=== PATIENT | male | born 1955 | race Caucasian/White ===

== ENCOUNTER 2020-06-18 13:31 | Inpatient (IN) ==
[2020-06-18] MEDS ORDERED: CEFEPIME 2,000 MG/20 ML VIAL IV STA (14:22)
[2020-06-18] MEDS ORDERED: ONDANSETRON INJ 2 MG/ML 2 ML VIAL IV STA (14:22)
[2020-06-18] MEDS ORDERED: SODIUM CHLORIDE 0.9% 500 ML IV SCH (14:30)
--- NOTE | 2020-06-18 14:35 | Emergency Department Note ---
Impression & Plan Weakness, Acute cholecystitis, Falling, Leukocytosis ED Provider Note NAME: DESTINEY FITZGERALD AGE: 64 SEX: M : 1955 ARRIVES VIA: Walk-In INFORMANT: [Patient][family] ED PROVIDER(S): [Dean Field MD] CHIEF COMPLAINT: Weakness HISTORY OF PRESENT ILLNESS: The patient is a 64-year-old male who over the last few weeks has had multiple falls. He has been weaker and off balance and sometimes stumbling. He has not had much to eat or drink. There has been no fever, he has had some sweats though. He has had no cough or congestion, shortness of breath or chest pain. He denies vomiting but admits to a few bouts of diarrhea. Patient denies any real abdominal pain. The patient had outpatient imaging done today. Brain CT showed multiple older infarcts, nothing thought acute. Chest CT and abdominal and pelvis CTs were performed and suggestive of acute cholecystitis. The patient was sent to the ED for further work-up. REVIEW OF SYSTEMS: See HPI for pertinent positives and negatives. A total of ten systems were reviewed and were otherwise negative. PMHx/PSHx: See Below SOCIAL HISTORY: See Below. PHYSICAL EXAM: GENERAL: Patient is in no acute distress. HEENT: No acute trauma, normocephalic atraumatic, mucous membranes moist, no nasal congestion, no scleral icterus. NECK: No stridor, no adenopathy, no meningismus, trachea is midline. LUNGS: Clear to auscultation bilaterally, no wheeze, no rhonchi, breath sounds equal. HEART: Without murmurs gallops or rubs, regular rate and rhythm. ABDOMEN: Soft, nontender, bowel sounds positive, no hernias, no peritonitis. EXTREMITIES: No cyanosis or edema, full range of motion of all the joints wi thout pain or difficulty, no signs for acute trauma. NEUROLOGIC: Oriented x 3, no acute motor or sensory deficits, no focal weakness. No extremity drift, no cerebellar dysfunction. No speech slur or facial droop. SKIN: No rash, mild jaundice, no diaphoresis. DIFFERENTIAL DIAGNOSIS: Infection, dehydration, metabolic abnormality, hypo/hyperglycemia, electrolyte disturbance, anemia, hypoxia, acute cholecystitis, cardiac sources, intracerebral event, toxicologic issues, stroke, TIA, as well as other pathologies. EMERGENCY DEPARTMENT COURSE/PROCEDURES: ECG: Indication was weakness. The ECG shows a normal sinus rhythm with a rate of 91. There is no ST elevation, no PVCs. The QTc is 432. Continuous Cardiac Monitoring: An order was placed for continuous cardiac monitoring. The monitor shows a rate of 85 with normal sinus rhythm. MEDICAL DECISION MAKING: There is a slight leukocytosis, this certainly could be consistent with infection. There is a normal hemoglobin and platelet count. INR is slightly elevated at 1.2. There is an elevation to the creatinine consistent with some d ehydration, the value was 1.56. Lactic acid level was not elevated making sepsis less likely. There were a few subtle liver enzyme elevations, the bilirubin though was normal. Ammonia level was very slightly elevated at 37. No evidence for pancreatitis. ECG shows a sinus rhythm, no acute ischemia. Cardiac enzyme testing x1 is not consistent with acute cardiac injury. Covid testing returned negative. Chest film did not show pneumonia or free air. Gallbladder ultrasound showed evidence for acute cholecystitis. The patient was not toxic or febrile. He had really no pain on abdominal exam. The patient was given IV cefepime as empiric antibiotic coverage. He was given IV saline and IV Zofran. I spoke to patient about his findings, I spoke with general surgery and internal medicine. Hospitalization is warranted. The patient will eventually need a cholecystectomy. With regard to the findings on brain CT imaging, they appear older, not acute. On my exam, there are no focal neurologic findings. Certainly, his weakness, his falling could be secondary to his gallbladder infection. Past Med/Surg History Medical History Depression Diabetes type 2, uncontrolled (05/08/20) initial hemoglobin noted at 9%-04/2020 Frozen shoulder syndrome Hyperlipidemia Hypertension Left ankle pain Psoriasis Vitamin D deficiency Surgical History No history of previous surgery patient notes when very young fractured skull but does not know the name of procedure he had Family History Mother Myocardial infarction Denies family history of Ovarian cancer Prostate cancer Breast cancer Colorectal cancer Social History Smoking Status: Former smoker Tobacco Type: Smokeless Tobacco (Dip or Chew) Second Hand Exposure: No; Hx Alcohol Use: Yes Alcohol type: beer Alcohol Intake Frequency Comment: sometimes on a weekend Hx Substance Use: No Visual Impairment: No Limitations Hearing Ability: Hard of Hearing Director Of Psychology Required: No Beliefs That Will Affect Care: None marital status: Current Living Situation: Alone current occupational status: retired How many Children do You have: 0 Feels Safe at Home: Yes Childhood Exposure to Second-Hand Smoke: No caffeine: Yes during the past year weight has: remained stable Dental Care, Regularly: No Physical Activity Frequency: Daily Seatbelt Use: always Sunscreen Use: No Allergies Allergies Allergy/AdvReac Type Severity Reaction Status Date / Time No Known Allergies Allergy Verified 06/18/20 17:36 Home Meds Home Medications Medication Instructions Recorded Confirmed betamethasone dipropionate 1 applic TOPICAL BID PRN 06/18/20 06/18/20 lisinopril 20 mg PO QAM 06/18/20 06/18/20 metformin 1,000 mg PO BIDM 06/18/20 06/18/20 Previous Rx's Medication Instructions Recorded amlodipine 5 mg tablet 5 mg PO HS #30 tab 06/18/20 Results & Data (ED) Vital Signs Vital Signs - 24 hr 06/18/20 13:40 06/18/20 14:20 06/18/20 14:22 Temperature 36.4 C L Temperature Source Oral Pulse Rate 102 H 91 H 102 H Pulse Rate from SpO2 Sensor 91 H Pulse Rhythm Regular Respiratory Rate 18 18 18 Blood Pressure 103/67 117/64 Blood Pressure Mean 79 81 Pulse Oximetry 97 95 97 Oxygen Delivery Method Room Air Room Air Sepsis Recent Fever Within 48 Hours No Sepsis New/Unexplained Change in Mental Status No Sepsis Action Taken by Nursing No Action Required 06/18/20 14:30 06/18/20 15:00 06/18/20 15:30 Temperature Temperature Source Pulse Rate 92 H 90 86 Pulse Rate from SpO2 Sensor 92 H 90 87 Pulse Rhythm Respiratory Rate 19 13 10 L Blood Pressure 158/94 H 119/77 131/80 Blood Pressure Mean 115 91 97 Pulse Oximetry 96 96 96 Oxygen Delivery Method Sepsis Recent Fever Within 48 Hours Sepsis New/Unexplained Change in Mental Status Sepsis Action Taken by Nursing 06/18/20 16:25 06/18/20 17:20 06/18/20 17:30 Temperature Temperature Source Pulse Rate 85 Pulse Rate from SpO2 Sensor 83 84 Pulse Rhythm Respiratory Rate 17 20 12 Blood Pressure 125/71 139/78 121/73 Blood Pressure Mean 89 98 89 Pulse Oximetry 96 96 96 Oxygen Delivery Method Sepsis Recent Fever Within 48 Hours Sepsis New/Unexplained Change in Mental Status Sepsis Action Taken by Nursing 06/18/20 18:00 06/18/20 19:01 Temperature Temperature Source Pulse Rate 82 84 Pulse Rate from SpO2 Sensor 82 83 Pulse Rhythm Respiratory Rate 22 17 Blood Pressure 127/72 117/58 L Blood Pressure Mean 90 77 Pulse Oximetry 96 96 Oxygen Delivery Method Sepsis Recent Fever Within 48 Hours Sepsis New/Unexplained Change in Mental Status Sepsis Action Taken by Detention Medications Current Medication List: was personally reviewed by me Laboratory Data Attestation: I reviewed the patient's lab results. Result diagrams: 06/18/20 14:20 06/18/20 14:20 Lab Results 06/18/20 06/18/20 06/18/20 Range/Units 14:20 14:20 14:20 WBC 13.33 H (4.8-10.8) K/uL RBC 4.93 (4.7-6.1) M/uL Hgb 14.5 (14.0-18.0) g/dL Hct 41.1 L (42-52) % MCV 83.4 (80-100) fL MCH 29.4 (25-34) pg MCHC 35.3 (32-36) g/dL RDW Std Deviation 41.9 (36.4-46.3) fL RDW Coeff of James 13.7 (11.5-14.5) % Plt Count 327 (130-400) K/uL MPV 10.4 (7.4-10.4) fL Immature Gran % (Auto) 0.3 % Neut % (Auto) 81.9 % Lymph % (Auto) 6.5 % [place] % (Auto) 10.9 % Eos % (Auto) 0.3 % Baso % (Auto) 0.1 % Neut # (Auto) 10.92 H (1.4-6.5) K/uL Lymph # (Auto) 0.87 L (1.2-3.4) K/uL [place] # (Auto) 1.45 H (0.11-0.59) K/uL Eos # (Auto) 0.04 (0-0.5) K/uL Baso # (Auto) 0.01 (0-0.2) K/uL Immature Gran # (Auto) 0.04 H (0.00-0.02) K/uL PT 12.9 H (9.0-12.0) Seconds INR 1.2 H (0.9-1.1) APTT 29.3 (21.0-31.0) Seconds PTT Ratio 1.1 Sodium 133 L (136-145) mmol/L Potassium 3.5 (3.5-5.1) mmol/L Chloride 97 L (98-107) mmol/L Carbon Dioxide 27 (21-32) mmol/L Anion Gap 9.0 (3-11) BUN 27 H (7-18) mg/dl Creatinine 1.56 H (0.6-1.4) mg/dl Est Cr Clr Drug Dosing Not Reportable Est GFR ( Amer) 53.2 Est GFR (Non-Af Amer) 45.9 BUN/Creatinine Ratio 17.0 (10-20) Glucose 215 H (70-99) mg/dl Lactate (0.4-2.0) mmol/L Calcium 9.9 (8.5-10.1) mg/dl Magnesium 2.2 (1.8-2.4) mg/dl Total Bilirubin 0.8 (0.2-1) mg/dl AST 84 H (15-37) U/L ALT 134 H (12-78) U/L Alkaline Phosphatase 114 (45-117) U/L Ammonia (11-32) umol/L Troponin I < 0.015 (0-0.045) ng/ml Total Protein 7.7 (6.4-8.2) gm/dl Albumin 2.7 L (3.4-5.0) gm/dl Globulin 5.0 H (2.5-4.0) gm/dl Albumin/Globulin Ratio 0.5 L (0.9-2) Lipase 232 (73-393) U/L COVID-19 Eval Order SARS-CoV-2, RNA, NAAT (NEGATIVE) 06/18/20 06/18/20 06/18/20 Range/Units 15:53 15:53 17:50 WBC (4.8-10.8) K/uL RBC (4.7-6.1) M/uL Hgb (14.0-18.0) g/dL Hct (42-52) % MCV (80-100) fL MCH (25-34) pg MCHC (32-36) g/dL RDW Std Deviation (36.4-46.3) fL RDW Coeff of James (11.5-14.5) % Plt Count (130-400) K/uL MPV (7.4-10.4) fL Immature Gran % (Auto) % Neut % (Auto) % Lymph % (Auto) % [place] % (Auto) % Eos % (Auto) % Baso % (Auto) % Neut # (Auto) (1.4-6.5) K/uL Lymph # (Auto) (1.2-3.4) K/uL [place] # (Auto) (0.11-0.59) K/uL Eos # (Auto) (0-0.5) K/uL Baso # (Auto) (0-0.2) K/uL Immature Gran # (Auto) (0.00-0.02) K/uL PT (9.0-12.0) Seconds INR (0.9-1.1) APTT (21.0-31.0) Seconds PTT Ratio Sodium (136-145) mmol/L Potassium (3.5-5.1) mmol/L Chloride (98-107) mmol/L Carbon Dioxide (21-32) mmol/L Anion Gap (3-11) BUN (7-18) mg/dl Creatinine (0.6-1.4) mg/dl Est Cr Clr Drug Dosing Est GFR ( Amer) Est GFR (Non-Af Amer) BUN/Creatinine Ratio (10-20) Glucose (70-99) mg/dl Lactate 1.3 (0.4-2.0) mmol/L Calcium (8.5-10.1) mg/dl Magnesium (1.8-2.4) mg/dl Total Bilirubin (0.2-1) mg/dl AST (15-37) U/L ALT (12-78) U/L Alkaline Phosphatase (45-117) U/L Ammonia 37.0 H (11-32) umol/L Troponin I (0-0.045) ng/ml Total Protein (6.4-8.2) gm/dl Albumin (3.4-5.0) gm/dl Globulin (2.5-4.0) gm/dl Albumin/Globulin Ratio (0.9-2) Lipase (73-393) U/L COVID-19 Eval [facility] SARS-CoV-2, RNA, NAAT (NEGATIVE) 06/18/20 Range/Units 17:50 WBC (4.8-10.8) K/uL RBC (4.7-6.1) M/uL Hgb (14.0-18.0) g/dL Hct (42-52) % MCV (80-100) fL MCH (25-34) pg MCHC (32-36) g/dL RDW Std Deviation (36.4-46.3) fL RDW Coeff of James (11.5-14.5) % Plt Count (130-400) K/uL MPV (7.4-10.4) fL Immature Gran % (Auto) % Neut % (Auto) % Lymph % (Auto) % [place] % (Auto) % Eos % (Auto) % Baso % (Auto) % Neut # (Auto) (1.4-6.5) K/uL Lymph # (Auto) (1.2-3.4) K/uL [place] # (Auto) (0.11-0.59) K/uL Eos # (Auto) (0-0.5) K/uL Baso # (Auto) (0-0.2) K/uL Immature Gran # (Auto) (0.00-0.02) K/uL PT (9.0-12.0) Seconds INR (0.9-1.1) APTT (21.0-31.0) Seconds PTT Ratio Sodium (136-145) mmol/L Potassium (3.5-5.1) mmol/L Chloride (98-107) mmol/L Carbon Dioxide (21-32) mmol/L Anion Gap (3-11) BUN (7-18) mg/dl Creatinine (0.6-1.4) mg/dl Est Cr Clr Drug Dosing Est GFR ( Amer) Est GFR (Non-Af Amer) BUN/Creatinine Ratio (10-20) Glucose (70-99) mg/dl Lactate (0.4-2.0) mmol/L Calcium (8.5-10.1) mg/dl Magnesium (1.8-2.4) mg/dl Total Bilirubin (0.2-1) mg/dl AST (15-37) U/L ALT (12-78) U/L Alkaline Phosphatase (45-117) U/L Ammonia (11-32) umol/L Troponin I (0-0.045) ng/ml Total Protein (6.4-8.2) gm/dl Albumin (3.4-5.0) gm/dl Globulin (2.5-4.0) gm/dl Albumin/Globulin Ratio (0.9-2) Lipase (73-393) U/L COVID-19 Eval Order SARS-CoV-2, RNA, NAAT NEGATIVE (NEGATIVE) Administered Medications Discontinued Medications Cefepime HCl (Maxipime) 2,000 mg in 20 mls @ 5 mls/min IV NOW STA; Protocol Stop: 06/18/20 14:25 Last Admin: 06/18/20 15:55 Dose: 5 mls/min Documented by: [id number] Sodium Chloride (Nss) 500 mls @ 999 mls/hr IV .Q31M BOBBY Stop: 06/18/20 15:00 Last Infusion: 06/18/20 16:25 Dose: 0 mls/hr Documented by: [id number] Admin: 06/18/20 15:54 Dose: 999 mls/hr Documented by: [id number] Ondansetron HCl (Ondansetron Inj 2 Mg/Ml 2 Ml Vial) 4 mg IV NOW STA Stop: 06/18/20 14:23 Last Admin: 06/18/20 15:55 Dose: 4 mg Documented by: [id number] Imaging Data Radiologist's Impression: XR chest 1V portable CLINICAL HISTORY: Abdominal pain. COMPARISON STUDY: Chest CT performed earlier today. FINDINGS: Lung volumes are normal. Lungs are clear. There is no pneumothorax or pleural effusion. Cardiac size is normal. Mediastinal contours are normal. There is no evidence for pulmonary edema. IMPRESSION: No acute cardiopulmonary findings. US gallbladder CLINICAL HISTORY: Abnormal CT scan. COMPARISON STUDY: CT of the abdomen and pelvis June 18, 2020. FINDINGS: A 1.8 cm right hepatic lobe lesion favors a cyst. Note is made of sludge within the gallbladder. No definite gallstones are noted. The gallbladder is distended. There is moderate gallbladder wall thickening. Trace pericholecystic fluid is noted. No sonographic Raymond sign was elicited. There is no biliary ductal dilatation. The common bile duct measures 5 mm in caliber. The pancreas is largely obscured. There is no right hydronephrosis. IMPRESSION: 1. Distended gallbladder with gallbladder wall thickening and sludge within the gallbladder. No gallstones identified. Overall, the CT and ultrasound findings suggest acute cholecystitis. 2. No biliary ductal dilatation. 3. Partially obscured pancreas. Discharge Plan Visit Data Chief Complaint: Weakness Stated Complaint: DIZZY,ABD PAIN,REF BY DOC ED Provider: Dean Field Discharge Problem: Weakness, Acute cholecystitis, Falling, Leukocytosis Patient Disposition: Admitted As Inpatient Condition: Fair Forms Stand Alone Forms: [facility] [employer] Prescriptions Prescriptions: No Action amlodipine 5 mg tablet 5 mg PO HS Qty: 30 RF: 3 lisinopril 20 mg tablet 20 mg PO QAM RF: 0 metformin 1,000 mg tablet 1,000 mg PO BIDM RF: 0 betamethasone dipropionate 0.05 % cream 1 applic topical BID PRN (Reason: Psoriasis) RF: 0 Referrals Referrals: Mathew Gonzalez CRNP [Primary Care Provider] - Discharge Problem: Leukocytosis Qualifiers: Leukocytosis type: unspecified Qualified Code(s): D72.829 - Elevated white blood cell count, unspecified
--- NOTE | 2020-06-18 14:44 | XRay Report ---
XR chest 1V portable CLINICAL HISTORY: Abdominal pain. COMPARISON STUDY: Chest CT performed earlier today. FINDINGS: Lung volumes are normal. Lungs are clear. There is no pneumothorax or pleural effusion. Car diac size is normal. Mediastinal contours are normal. There is no evidence for pulmonary edema. IMPRESSION: No acute cardiopulmonary findings. ACT 112: Negative or not required by law. Electronically signed by: Keith Blevins M.D. 06/18/2020 2:42 PM
[2020-06-18 14:45] LABS: Basophils # (auto) 0.01 K/uL (0-0.2); Basophils % (auto) 0.1 %; Eosinophils # (auto) 0.04 K/uL (0-0.5); Eosinophils % (auto) 0.3 %; Hematocrit (blood only) 41.1 % (42-52); Hemoglobin 14.5 g/dL (14.0-18.0); Immature Granulocytes # (auto) 0.04 K/uL (0.00-0.02); Immature Granulocytes % (auto) 0.3 %; Lymphocytes # (auto) 0.87 K/uL (1.2-3.4); Lymphocytes % (auto) 6.5 %; Mean Corpuscular Hemoglobin 29.4 pg (25-34); Mean Corpuscular Hgb Conc 35.3 g/dL (32-36); Mean Corpuscular Volume 83.4 fL (80-100); Mean Platelet Volume 10.4 fL (7.4-10.4); Monocytes # (auto) 1.45 K/uL (0.11-0.59); Monocytes % (auto) 10.9 %; Neutrophils # (auto) 10.92 K/uL (1.4-6.5); Neutrophils % (auto) 81.9 %; Platelet Count 327 K/uL (130-400); RDW Coefficient of Variation 13.7 % (11.5-14.5); RDW Standard Deviation 41.9 fL (36.4-46.3); Red Blood Count 4.93 M/uL (4.7-6.1); White Blood Count 13.33 K/uL (4.8-10.8)
[2020-06-18 14:56] LABS: INR 1.2 (0.9-1.1); Partial Thromboplastin Ratio 1.1; Partial Thromboplastin Time 29.3 Seconds (21.0-31.0); Prothrombin Time 12.9 Seconds (9.0-12.0)
[2020-06-18 15:09] LABS: Alanine Aminotransferase 134 U/L (12-78); Albumin Level 2.7 gm/dl (3.4-5.0); Aspartate Aminotransferase 84 U/L (15-37); Blood Urea Nitrogen 27 mg/dl (7-18); Calcium 9.9 mg/dl (8.5-10.1); Carbon Dioxide 27 mmol/L (21-32); Chloride 97 mmol/L (98-107); Est GFR (African American) 53.2; Est GFR (Non-African American) 45.9; Glucose 215 mg/dl (70-99); Lipase 232 U/L (73-393); Magnesium 2.2 mg/dl (1.8-2.4); Potassium 3.5 mmol/L (3.5-5.1); Sodium 133 mmol/L (136-145)
[2020-06-18 15:14] LABS: Albumin Globulin Ratio 0.5 (0.9-2); Alkaline Phosphatase 114 U/L (45-117); Bilirubin,Total 0.8 mg/dl (0.2-1); Total Protein 7.7 gm/dl (6.4-8.2); Troponin I < 0.015 ng/ml (0-0.045)
--- NOTE | 2020-06-18 16:47 | Electrocardiogram Report ---
Test Reason : Blood Pressure : / mmHG Vent. Rate : 091 BPM Atrial Rate : 091 BPM P-R Int : 158 ms QRS Dur : 088 ms QT Int : 352 ms P-R-T Axes : 061 039 068 degrees QTc Int : 432 ms Normal sinus rhythm Possible Left atrial enlargement Borderline ECG No previous ECGs available Confirmed by Mack Vernon ([id number]) on 06/18/2020 4:47:02 PM Referred By: ER Confirmed By:Carlos Vernon
--- NOTE | 2020-06-18 17:24 | Ultrasound Report ---
US gallbladder CLINICAL HISTORY: Abnormal CT scan. COMPARISON STUDY: CT of the abdomen and pelvis June 18, 2020. FINDINGS: A 1.8 cm right hepatic lobe lesion favors a cyst. Note is made of sludge within the gallbla dder. No definite gallstones are noted. The gallbladder is distended. There is moderate gallbladder w all thickening. Trace pericholecystic fluid is noted. No sonographic Raymond sign was elicited. There is no biliary ductal dilatation. The common bile duct measures 5 mm in caliber. The pancreas is large ly obscured. There is no right hydronephrosis. IMPRESSION: 1. Distended gallbladder with gallbladder wall thickening and sludge within the gallbladder. No galls tones identified. Overall, the CT and ultrasound findings suggest acute cholecystitis. 2. No biliary ductal dilatation. 3. Partially obscured pancreas. ACT 112: Negative or not required by law. Electronically signed by: Keith Blevins M.D. 06/18/2020 5:23 PM
--- NOTE | 2020-06-18 20:27 | Surgery Consultation ---
Date of Consultation June 18, 2020 Assessment & Plan (1) Acute cholecystitis: pt is a 64 year-old male who presents with ER with weakness, U/S study diagnosis: acute cholecystitis, IMP: acute cholecystitis, DM, weakness, I recommend to admit pt to hospital, to do laparoscopic cholecystectomy possible open or cholangiogram tomorrow, D/W benefits, risks and alternatives of the surgery, the risks - infection, bleeding, injury CBD, bowel, IN, DVT, stroke, , pt and his brother understood, they agree with the plan, I answered all questions, consult hospitalist for co-manage this pt. Present on Admission?: Yes (2) Weakness: History of Present Illness History of Present Illness CHIEF COMPLAINT: Weakness HISTORY OF PRESENT ILLNESS: The patient is a 64-year-old male who over the last few weeks has had multiple falls. He has been weaker and off balance and sometimes stumbling. He has not had much to eat or drink. There has been no fever, he has had some sweats though. He has had no cough or congestion, shortness of breath or chest pain. He denies vomiting but admits to a few bouts of diarrhea. Patient denies any real abdominal pain. The patient had outpatient imaging done today. Brain CT showed multiple older infarcts, nothing thought acute. Chest CT and abdominal and pelvis CTs were performed and suggestive of acute cholecystitis. The patient was sent to the ED for further work-up. I ( Patt lBand mD) got a call for consult acute cholecystitis, I reviewed pt's H/P, labs, U/S study with pt and his brother, pt has mild RUQ pain, with na usea, no vomiting, no fever, REVIEW OF SYSTEMS: See HPI for pertinent positives and negatives. A total of ten systems were reviewed and were otherwise negative. PMHx/PSHx: See Below SOCIAL HISTORY: See Below. Allergies Allergy/AdvReac Type Severity Reaction Status Date / Time No Known Allergies Allergy Verified 06/18/20 17:36 Home Medications Medication Instructions Recorded Confirmed Type amlodipine 5 mg tablet 5 mg PO HS #30 tab 06/18/20 06/18/20 Rx betamethasone dipropionate 1 applic TOPICAL BID PRN 06/18/20 06/18/20 History lisinopril 20 mg PO QAM 06/18/20 06/18/20 History metformin 1,000 mg PO BIDM 06/18/20 06/18/20 History Patient History Medical History Depression Diabetes type 2, uncontrolled (05/08/20) initial hemoglobin noted at 9%-04/2020 Frozen shoulder syndrome Hyperlipidemia Hypertension Left ankle pain Psoriasis Vitamin D deficiency Surgical History No history of previous surgery patient notes when very young fractured skull but does not know the name of procedure he had Family History Mother Myocardial infarction Denies family history of Ovarian cancer Prostate cancer Breast cancer Colorectal cancer Social History Smoking Status: Former smoker Tobacco Type: Smokeless Tobacco (Dip or Chew) Second Hand Exposure: No; Hx Alcohol Use: Yes Alcohol type: beer Alcohol Intake Frequency Comment: sometimes on a weekend Hx Substance Use: No Visual Impairment: No Limitations Hearing Ability: Hard of Hearing Beater Operator Required: No Beliefs That Will Affect Care: None marital status: Current Living Situation: Alone current occupational status: retired How many Children do You have: 0 Feels Safe at Home: Yes Childhood Exposure to Second-Hand Smoke: No caffeine: Yes during the past year weight has: remained stable Dental Care, Regularly: No Physical Activity Frequency: Daily Seatbelt Use: always Sunscreen Use: No Review of Systems Review of Systems: All systems reviewed & are unremarkable except as noted in HPI & below Constitutional: as per Subjective / HPI Eyes: as per Subjective / HPI Ear, Nose, Mouth, Throat: as per Subjective / HPI Respiratory: as per Subjective / HPI Cardiovascular: as per Subjective / HPI Additional Comments: HTN, hyperlipidemia Gastrointestinal: as per Subjective / HPI Genitourinary: + as per Subjective / HPI Musculoskeletal: as per Subjective / HPI vit D deficiency Integumentary: as per Subjective / HPI Neurologic: as per Subjective / HPI Psychiatric: as per Subjective / HPI depression Endocrine: as per Subjective / HPI DM Hematologic / Lymphatic: as per Subjective / HPI Allergy / Immunological: as per Subjective / HPI Physical Exam Constitutional: WD/WN, vitals as above well developed and well nourished Eyes: PERRL, conjunctivae normal, anicteric sclerae ENMT: external ear and nose normal, oropharynx normal Neck: trachea midline, no thyromegaly Respiratory: normal respiratory effort, lungs clear to auscultation normal respiratory effort Cardiovascular: RRR, no murmur, no edema Rate/Rhythm: regular rate and regular rhythm Gastrointestinal (Abdomen): Percussion/Palpation: + abdomen tender and abdomen soft tenderness at RUQ, no rebound pain, BS +, no distend Musculoskeletal: no cyanosis or clubbing, extremities motor strength 5/5 Skin: no rashes, warm and dry Neurologic: awake Psychiatric: Orientation: alert and oriented x 3 Results & Data ([facility]) Vital Signs (Past 12 Hours) Vital Signs Temp Pulse Resp BP Pulse Ox 06/18/20 20:00 86 19 155/108 H 06/18/20 19:30 81 13 121/74 97 06/18/20 19:01 84 17 117/58 L 96 06/18/20 18:00 82 22 127/72 96 06/18/20 17:30 12 121/73 96 06/18/20 17:20 20 139/78 96 06/18/20 16:25 85 17 125/71 96 06/18/20 15:30 86 10 L 131/80 96 06/18/20 15:00 90 13 119/77 96 06/18/20 14:30 92 H 19 158/94 H 96 06/18/20 14:22 102 H 18 97 06/18/20 14:20 91 H 18 117/64 95 06/18/20 13:40 36.4 C L 102 H 18 103/67 97 Laboratory Results Abnormal lab results 06/18/20 06/18/20 06/18/20 Range/Units 14:20 14:20 14:20 WBC 13.33 H (4.8-10.8) K/uL Hct 41.1 L (42-52) % Neut # (Auto) 10.92 H (1.4-6.5) K/uL Lymph # (Auto) 0.87 L (1.2-3.4) K/uL [place] # (Auto) 1.45 H (0.11-0.59) K/uL Immature Gran # (Auto) 0.04 H (0.00-0.02) K/uL PT 12.9 H (9.0-12.0) Seconds INR 1.2 H (0.9-1.1) Sodium 133 L (136-145) mmol/L Chloride 97 L (98-107) mmol/L BUN 27 H (7-18) mg/dl Creatinine 1.56 H (0.6-1.4) mg/dl Glucose 215 H (70-99) mg/dl AST 84 H (15-37) U/L ALT 134 H (12-78) U/L Ammonia (11-32) umol/L Albumin 2.7 L (3.4-5.0) gm/dl Globulin 5.0 H (2.5-4.0) gm/dl Albumin/Globulin Ratio 0.5 L (0.9-2) 06/18/20 Range/Units 15:53 WBC (4.8-10.8) K/uL Hct (42-52) % Neut # (Auto) (1.4-6.5) K/uL Lymph # (Auto) (1.2-3.4) K/uL [place] # (Auto) (0.11-0.59) K/uL Immature Gran # (Auto) (0.00-0.02) K/uL PT (9.0-12.0) Seconds INR (0.9-1.1) Sodium (136-145) mmol/L Chloride (98-107) mmol/L BUN (7-18) mg/dl Creatinine (0.6-1.4) mg/dl Glucose (70-99) mg/dl AST (15-37) U/L ALT (12-78) U/L Ammonia 37.0 H (11-32) umol/L Albumin (3.4-5.0) gm/dl Globulin (2.5-4.0) gm/dl Albumin/Globulin Ratio (0.9-2) Diagnostic Findings US gallbladder CLINICAL HISTORY: Abnormal CT scan. COMPARISON STUDY: CT of the abdomen and pelvis June 18, 2020. FINDINGS: A 1.8 cm right hepatic lobe lesion favors a cyst. Note is made of sludge within the gallbladder. No definite gallstones are noted. The gallbladder is distended. There is moderate gallbladder wall thickening. Trace pericholecystic fluid is noted. No sonographic Raymond sign was elicited. There is no biliary ductal dilatation. The common bile duct measures 5 mm in caliber. The pancreas is largely obscured. There is no right hydronephrosis. IMPRESSION: 1. Distended gallbladder with gallbladder wall thickening and sludge within the gallbladder. No gallstones identified. Overall, the CT and ultrasound findings suggest acute cholecystitis. 2. No biliary ductal dilatation. 3. Partially obscured pancreas.
[2020-06-18] MEDS ORDERED: PIPERACILL/TAZOBAC CONSULT ACTIVE PRN (22:03)
[2020-06-18] MEDS ORDERED: oxyCODONE/ACETAMINOPHEN 5mg/325mg TAB PO PRN (22:03)
[2020-06-18] MEDS ORDERED: HYDROmorphone INJ 1 MG/ML SYRINGE IV PRN (22:03)
[2020-06-18] MEDS ORDERED: PANTOprazole 40 MG in SYRINGE 0 ML IV ONE (22:30)
[2020-06-18] MEDS: LACTATED RINGER'S 1,000 ML IV SCH (22:37)
[2020-06-18 22:50] LABS: Albumin Level 2.6 gm/dl (3.4-5.0); BUN Creatinine Ratio 20.2 (10-20); Calcium 10.3 mg/dl (8.5-10.1); Creatinine Clr Calc Pharmacy 56.2 ml/min; Est GFR (African American) 65.8; Est GFR (Non-African American) 56.7; Potassium 3.5 mmol/L (3.5-5.1)
[2020-06-18 22:53] LABS: Albumin Globulin Ratio 0.5 (0.9-2); Bilirubin,Total 0.6 mg/dl (0.2-1); Globulin 5.1 gm/dl (2.5-4.0); Total Protein 7.7 gm/dl (6.4-8.2)
[2020-06-18] MEDS ORDERED: PIPERACILLIN/TAZOBACTAM 3.375 GM in DEXTROSE 5% 100 ML IV ONE (23:00)
[2020-06-19] MEDS: amLODIPine BESYLATE 5 MG TAB PO SCH ×2 (00:02→20:07)
[2020-06-19] MEDS: INSULIN ASPART 100 UNITS/ML 3 ML PEN SC SCH ×5 (00:06→20:50)
[2020-06-19 00:29] LABS: Appearance Urine Cloudy (Clear); Bacteria Urine Automated Negative (Negative); Bilirubin Urine Negative (Negative); Blood Urine 1+ (Negative); Color Urine Yellow; Epithelial Cell Urine Auto >30 /lpf (0-5); Glucose Urine UA Negative (Negative); Ketones Urine Trace (Negative); Leukocyte Esterase Urine 2+ (Negative); Nitrite Urine Negative (Negative); Protein Urine Trace (Negative); RBC Urine Automated 0-4 /hpf (0-4); Specific Gravity Urine 1.045 (1.000-1.030); Urobilinogen Urine Negative (Negative)
[2020-06-19] MEDS ORDERED: hydrALAZINE HCL 20 MG/ML VIAL IV PRN (01:01)
[2020-06-19 01:10] LABS: Mucus Urine Present (None Prsent)
[2020-06-19] MEDS ORDERED: DEXTROSE 50% 50 ML SYRINGE IV PRN (02:00)
[2020-06-19] MEDS ORDERED: GLUCOSE 40% GEL 15 GM TUBE PO PRN (02:00)
[2020-06-19] MEDS ORDERED: GLUCOSE 10 TABS/TUBE PO PRN (02:00)
[2020-06-19] MEDS ORDERED: GLUCAGON FOR INJ 1 MG VIAL IM PRN (02:00)
[2020-06-19] MEDS ORDERED: CARBOHYDRATES FOR HYPOGLYCEMIA PO PRN (02:00)
--- NOTE | 2020-06-19 02:57 | History and Physical Report ---
DATE OF ADMISSION: 06/18/2020 CHIEF COMPLAINT: Acute cholecystitis. HISTORY OF PRESENT ILLNESS: This is a 64-year-old male with past medical history significant for diabetes, hypertension, psoriasis who was in the hospital for workup for his frequent falls at home and he had CT of the head, CT of the chest, CT abdomen and pelvis and workup showed acute cholecystitis and Surgery was consulted by the ER. A gallbladder ultrasound also was consistent with cholecystitis. Surgery admitted the patient, started on antibiotics and plan for laparoscopic cholecystectomy tomorrow. We are consulted for medical management. Currently, patient is resting comfortably. Denies any abdominal pain, no nausea, no fever, no chills, no chest pain, no shortness of breath, no cough, no headache, no blurred vision, no earache, no runny nose, no sore throat. He says normal bowel and bladder movements. ALLERGIES: No known drug allergies. PAST MEDICAL HISTORY: As mentioned above. PAST SURGICAL HISTORY: The patient denies any past surgical history. MEDICATIONS: The patient is on amlodipine 5 mg p.o. daily, betamethasone one topical application b.i.d. p.r.n., lisinopril 20 mg p.o. a.m., metformin 1000 mg p.o. b.i.d. FAMILY HISTORY: He says mother had diabetes. SOCIAL HISTORY: Lives alone, brother lives close by. Denies any smoking. Used to drink alcohol during the past but did not drink for a long time. Denies any drug use. REVIEW OF SYMPTOMS: As per HPI. Rest of review of systems negative. PHYSICAL EXAMINATION: GENERAL: The patient is of moderate build, not in acute distress. VITAL SIGNS: Temperature 37.2, pulse 79, respiratory rate 16, blood pressure 144/67, oxygen 97% room air. HEENT: Head atraumatic. No facial droop seen. NECK: No neck masses seen. CARDIOVASCULAR: S1, S2 heard, regular rate and rhythm, no murmur, no gallop. RESPIRATORY SYSTEM: Normal AP diameter. No accessory muscle use. No wheezing, no crackles. ABDOMEN: Soft, bowel sounds present, nontender. No distention, no guarding, no rigidity. CENTRAL NERVOUS SYSTEM: Cranial nerves II through XII grossly intact, nonfocal. EXTREMITIES: No edema, no erythema. LABORATORY DATA: WBC 13, hemoglobin 14.5, hematocrit 41.1, platelets 327. PT 12.9, INR 1.2. , PTT 29.3. Sodium 136, potassium 3.5, chloride 99, bicarbonate 29, BUN 26, creatinine 1.3, serum glucose 124. Lactate 1.3, calcium 10.3, magnesium 2.2, total bilirubin 0.6, AST 83, ALT 144, alkaline phosphatase 166. Ammonia 37. Troponin I less than 0.015. Lipase 232. Urinalysis, +2 leukocyte esterase. SARS-CoV-2 RNA negative. Chest x-ray: No acute cardiopulmonary findings. EKG: Normal sinus rhythm, rate of 91. Possible left atrial enlargement, no acute ST changes seen. IMAGING: Gallbladder ultrasound, distended gallbladder with gallbladder wall thickening and sludge within the gallbladder, no gallstones identified. Overall CT and ultrasound findings suggestive of acute cholecystitis, no biliary ductal dilatation. Imaging studies earlier in the day: CT findings compatible with acute cholecystitis, moderate pericholecystic infiltration, edema. CT head, no acute findings, chronic changes and remote infarcts. Chest CT, no evidence of acute parenchymal consolidation, no evidence of pathologic adenopathy. ASSESSMENT AND PLAN: This is a 64-year-old male with history of diabetes, hypertension, psoriasis, who lives alone, was sent to hospital for workup for frequent falls and imaging studies showed acute cholecystitis. 1. Acute cholecystitis could be the cause of his falls, also has mild elevation of white count and mild transaminitis, possible from ongoing infection. He is on IV Zosyn. Surgery planned for cholecystectomy in a.m. Further management per Surgery. 2. Hypertension. Continue his home amlodipine. We will hold his lisinopril until surgery. Continue IV hydralazine p.r.n. 3. Diabetes. Hold his metformin, place on insulin sliding scale. Follow his blood sugars, follow HbA1c levels. 4. History of psoriasis. Continue his topical steroid cream as needed. 5. Deep venous thrombosis prophylaxis and disposition as per Surgery. [facility]
[2020-06-19] MEDS: PIPERACILLIN/TAZOBACTAM 3.375 GM in DEXTROSE 5% 100 ML IV SCH ×3 (05:09→20:02)
[2020-06-19 06:35] LABS: Basophils # (auto) 0.02 K/uL (0-0.2); Basophils % (auto) 0.2 %; Eosinophils # (auto) 0.19 K/uL (0-0.5); Eosinophils % (auto) 1.4 %; Hematocrit (blood only) 40.6 % (42-52); Hemoglobin 13.8 g/dL (14.0-18.0); Immature Granulocytes # (auto) 0.03 K/uL (0.00-0.02); Immature Granulocytes % (auto) 0.2 %; Lymphocytes # (auto) 1.34 K/uL (1.2-3.4); Lymphocytes % (auto) 10.1 %; Mean Corpuscular Hemoglobin 28.9 pg (25-34); Mean Corpuscular Volume 84.9 fL (80-100); Mean Platelet Volume 9.9 fL (7.4-10.4); Monocytes # (auto) 1.53 K/uL (0.11-0.59); Monocytes % (auto) 11.5 %; Neutrophils # (auto) 10.17 K/uL (1.4-6.5); Neutrophils % (auto) 76.6 %; Platelet Count 328 K/uL (130-400); RDW Coefficient of Variation 13.8 % (11.5-14.5); RDW Standard Deviation 42.9 fL (36.4-46.3); Red Blood Count 4.78 M/uL (4.7-6.1); White Blood Count 13.28 K/uL (4.8-10.8)
[2020-06-19 07:03] LABS: Albumin Level 2.4 gm/dl (3.4-5.0); BUN Creatinine Ratio 19.5 (10-20); Calcium 9.8 mg/dl (8.5-10.1); Creatinine Clr Calc Pharmacy 64.6 ml/min; Est GFR (African American) 77.8; Est GFR (Non-African American) 67.1; Potassium 3.4 mmol/L (3.5-5.1)
[2020-06-19 07:07] LABS: Albumin Globulin Ratio 0.5 (0.9-2); Bilirubin,Total 0.6 mg/dl (0.2-1); Globulin 4.8 gm/dl (2.5-4.0); Total Protein 7.2 gm/dl (6.4-8.2)
[2020-06-19] MEDS ORDERED: INSULIN ASPART 100 UNITS/ML 3 ML PEN SC SCH (07:30)
--- NOTE | 2020-06-19 07:31 | History & Physical Bridge Note ---
Date of Service June 19, 2020 History & Physical Bridge Note I have examined the patient, reviewed the History & Physical and in the interval since the performance of the History & Physical I have noted the following changes of clinical significance: no changes noted
[2020-06-19] MEDS ORDERED: BUPIVACAINE 0.5 % 5 MG/1 ML MPF 30ML VIAL ONE (07:37)
[2020-06-19] MEDS ORDERED: LIDOCAINE HCL 1% 20 ML VIAL ONE (07:37)
[2020-06-19] MEDS ORDERED: BACITRACIN OINT 15 GM TUBE ONE (07:38)
[2020-06-19] MEDS ORDERED: DEXAMETHASONE SOD INJ 4 MG/ML VIAL ONE (07:38)
[2020-06-19] MEDS ORDERED: NEOSTIGMINE METHYLSULFATE 5 MG/5 ML SYR ONE (07:38)
[2020-06-19] MEDS ORDERED: PROPOFOL IV EMULSION 10 MG/ML 20 ML VIAL IV ONE ×2 (07:38→08:54)
[2020-06-19] MEDS ORDERED: GLYCOPYRROLATE 0.2 MG/ML VIAL ONE (07:38)
[2020-06-19] MEDS ORDERED: fentaNYL citrate 100 MCG/2 ML VIAL ONE ×3 (07:38→08:51)
[2020-06-19] MEDS ORDERED: LIDOCAINE HCL 2% 2 ML VIAL/AMP(20MG/ML) INFIL ONE (07:38)
[2020-06-19] MEDS ORDERED: MIDAZOLAM HCL 1 MG/ML 2ML VIAL ONE (07:38)
[2020-06-19] MEDS ORDERED: ONDANSETRON INJ 2 MG/ML 2 ML VIAL ONE (07:38)
[2020-06-19] MEDS ORDERED: ceFAZolin 2000MG 2,000 MG/15 ML SYR IV ONE (07:42)
[2020-06-19] MEDS ORDERED: fentaNYL citrate 100 MCG/2 ML VIAL IV PRN (07:49)
[2020-06-19] MEDS ORDERED: ePHEDrine sulfate 50 MG/ML AMP IV PRN (07:49)
[2020-06-19] MEDS ORDERED: ATROPINE SULFATE 0.1 MG/ML 10ML SYR IV PRN (07:49)
[2020-06-19] MEDS ORDERED: ONDANSETRON INJ 2 MG/ML 2 ML VIAL IV PRN (07:49)
[2020-06-19] MEDS ORDERED: HYDROmorphone INJ 1 MG/ML SYRINGE IV PRN (07:50)
--- NOTE | 2020-06-19 07:58 | Anesthesiology Consultation ---
Date of Service June 19, 2020 Assessment & Plan (1) Encounter for pre-operative examination: Chart Review Chart Review: Acceptable Risk for Surgery and Patient NOT seen in Pre Admission Testing Consults Requested none History Surgery Operation Date: 06/19/20 07:50 Proposed Procedures p Laparoscopic Cholecystectomy - Patt Bland MD Height/Weight Height: 5 ft 9 in Weight: 82 kg Allergies Allergy/AdvReac Type Severity Reaction Status Date / Time No Known Allergies Allergy Verified 06/18/20 17:36 Medications Home Medications Medication Instructions Recorded Confirmed Last Taken amlodipine 5 mg tablet 5 mg PO HS #30 tab 06/18/20 06/18/20 06/17/20 betamethasone dipropionate 1 applic TOPICAL BID PRN 06/18/20 06/18/20 Unknown lisinopril 20 mg PO QAM 06/18/20 06/18/20 06/18/20 metformin 1,000 mg PO BIDM 06/18/20 06/18/20 06/17/20 Active Medications Generic Name Dose Route Start Last Admin Trade Name Freq PRN Reason Stop Dose Admin Amlodipine Besylate 5 mg 06/18/20 22:03 06/19/20 00:02 Amlodipine Besylate 5 Mg Tab PO 07/18/20 22:02 5 mg HS BOBBY Administration Lactated Ringer's 1,000 mls @ 80 mls/hr 06/18/20 22:03 06/18/20 22:37 Lr IV 07/18/20 22:02 80 mls/hr .[id number] BOBBY Administration Piperacillin Sod/Tazobactam 115 mls @ 28.75 mls/hr 06/19/20 04:00 06/19/20 05:09 Sod 3.375 gm/ Dextrose IV 06/29/20 03:59 28.8 mls/hr Q8H BOBBY Administration Protocol Insulin Aspart 0 units 06/19/20 00:00 06/19/20 06:19 Insulin Aspart 100 Units/Ml 3 Ml Pen SC 06/20/20 12:01 Not Given Q6 BOBBY Miscellaneous 1 ea 06/19/20 00:00 06/19/20 00:06 Betamethasone Dipropionate 0.05 % Cream ~ Order Awaiting Action N/A 07/19/20 00:00 Not Given QS BOBBY NPO Date Last Intake of Fluids: 06/18/20 Time Last Intake of Fluids: 23:59 Date Last Intake of Solids: 06/18/20 Time Last Intake of Solids: 23:59 Past Medical History Medical History Depression Diabetes type 2, uncontrolled (05/08/20) initial hemoglobin noted at 9%-04/2020 Frozen shoulder syndrome Hyperlipidemia Hypertension Left ankle pain Psoriasis Vitamin D deficiency 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 Exercise / Class Metabolic Activity II 4-5 Yardwork/Stairs/Walk up hill Past Family History Family History Mother Myocardial infarction Denies family history of Ovarian cancer Prostate cancer Breast cancer Colorectal cancer Past Surgical History Surgical History No history of previous surgery patient notes when very young fractured skull but does not know the name of procedure he had Past Anesthesia History No Hx of Anesthesia Complications and No Family Hx of Anesthesia Complications History of PONV No Hx of PONV and No Hx of Motion Sickness Social History Smoking Status: Former smoker tobacco type: cigarettes Do You Dip or Chew Tobacco: Yes Hx Alcohol Use: No Alcohol type: beer Hx Substance Use: No Physical Exam Vital Signs Last Vital Signs Temp 36.9 C 06/19/20 07:58 Pulse 83 06/19/20 07:58 Resp 18 06/19/20 07:58 BP 158/82 H 06/19/20 07:58 Pulse Ox 95 06/19/20 07:58 Testing Laboratory Results 06/19/20 06:01 06/19/20 06:01 PT 12.9 Seconds (9.0-12.0) H 06/18/20 14:20 INR 1.2 (0.9-1.1) H 06/18/20 14:20 APTT 29.3 Seconds (21.0-31.0) 06/18/20 14:20 Urine Color Yellow 06/18/20 23:25 Urine Appearance Cloudy (Clear) A 06/18/20 23:25 Urine pH 5.0 (4.5-7.5) 06/18/20 23:25 Ur Specific [place] 1.045 (1.000-1.030) H 06/18/20 23:25 Urine Protein Trace (Negative) H 06/18/20 23:25 Urine Glucose (UA) Negative (Negative) 06/18/20 23:25 Urine Ketones Trace (Negative) H 06/18/20 23:25 Urine Nitrite Negative (Negative) 06/18/20 23:25 Ur Leukocyte Esterase 2+ (Negative) H 06/18/20 23:25 Urine WBC (Auto) 10-30 /hpf (0-5) H 06/18/20 23:25 Urine RBC (Auto) 0-4 /hpf (0-4) 06/18/20 23:25 U Hyaline Cast (Auto) 1-5 /lpf (0-5) 06/18/20 23:25 U Epithel Cells (Auto) >30 /lpf (0-5) H 06/18/20 23:25 Urine Bacteria (Auto) Negative (Negative) 06/18/20 23:25 06/19/20 06/19/20 06/19/20 08:00 06:14 00:05 POC Glucose 140 H 142 H 127 H Electrocardiogram Date: 06/18/20 Findings: + NSR @ (91)
[2020-06-19] MEDS ORDERED: lisinopril 20 MG TAB PO SCH (09:00)
--- NOTE | 2020-06-19 10:28 | Post Operative Brief Note ---
Immediate Post Op Note v1 Date of Surgery June 19, 2020 Pre & Post Diagnosis Operation Date: 06/19/20 07:50 Pre-Op Diagnosis: VOMITING, LOWER ABDOMINAL PAIN, acute cholecystitis Post-Op Diagnosis: VOMITING, LOWER ABDOMINAL PAIN, acute cholecystitis, gangrene gallbladder, cholelithiasis I identified the patient and participated in the time-out.: Yes Procedure Operation Date: 06/19/20 07:50 Actual Procedures p Laparoscopic subtotal Cholecystectomy - Patt Bland MD Surgeon Patt Bland MD Invoice Clerk surgical scheduler Estimated Blood Loss 20 Findings Consistent with Post-Op Diagnosis acute cholecystitis, gangrene gallbladder, cholelithiasis Fluids 1200ml Specimens gallbladder Drains Neal-De Dios Drain (10 flat) Anesthesia Type General Complications none Disposition Accompanied Patient To Recovery: Yes Disposition: Recovery Room Overlapping Procedure I was immediately available: during the entire case.
--- NOTE | 2020-06-19 13:33 | XCELERA ---
[id number]
[2020-06-19] MEDS ORDERED: POTASSIUM CHLORIDE CRTAB 20 MEQ TABCR PO STA (13:38)
[2020-06-19] MEDS: LACTATED RINGER'S 1,000 ML IV SCH ×2 (13:41→23:59)
[2020-06-19] MEDS: lisinopril 20 MG TAB PO SCH (14:16)
--- NOTE | 2020-06-19 14:28 | Anesthesiology Progress Note ---
Date of Service June 19, 2020 Anesthesia Post Procedure Vital Signs Vital Signs: Temp Pulse Pulse Pulse Pulse Resp BP 06/19/20 14:05 36.6 C 85 18 06/19/20 13:25 36.5 C 91 H 18 06/19/20 12:15 37.5 C 83 18 06/19/20 11:47 37.1 C 82 16 06/19/20 11:25 37.1 C 81 23 06/19/20 11:15 37.1 C 82 19 06/19/20 11:05 80 21 06/19/20 10:55 82 22 06/19/20 10:45 79 30 H 06/19/20 10:36 36.6 C 87 20 06/19/20 07:58 36.9 C 83 18 06/19/20 07:03 37.1 C 81 18 06/19/20 00:05 37.2 C 79 16 06/18/20 22:04 37.1 C 85 16 06/18/20 21:31 82 19 129/73 06/18/20 21:00 82 19 129/73 06/18/20 20:53 82 21 131/78 06/18/20 20:30 82 17 120/65 06/18/20 20:00 86 19 155/108 H 06/18/20 19:30 81 13 121/74 06/18/20 19:01 84 17 117/58 L 06/18/20 18:00 82 22 127/72 06/18/20 17:30 12 121/73 06/18/20 17:20 20 139/78 06/18/20 16:25 85 17 125/71 06/18/20 15:30 86 10 L 131/80 06/18/20 15:00 90 13 119/77 06/18/20 14:30 92 H 19 158/94 H BP BP Pulse Ox 06/19/20 14:05 176/75 H 95 06/19/20 13:25 179/83 H 95 06/19/20 12:15 170/83 H 95 06/19/20 11:47 182/84 H 95 06/19/20 11:25 179/92 H 95 06/19/20 11:15 182/93 H 98 06/19/20 11:05 169/83 H 98 06/19/20 10:55 180/78 H 97 06/19/20 10:45 164/82 H 99 06/19/20 10:36 194/91 H 100 06/19/20 07:58 158/82 H 95 06/19/20 07:03 154/82 H 96 06/19/20 00:05 144/67 H 97 06/18/20 22:04 157/84 H 95 06/18/20 21:31 97 06/18/20 21:00 97 06/18/20 20:53 98 06/18/20 20:30 97 06/18/20 20:00 06/18/20 19:30 97 06/18/20 19:01 96 06/18/20 18:00 96 06/18/20 17:30 96 06/18/20 17:20 96 06/18/20 16:25 96 06/18/20 15:30 96 06/18/20 15:00 96 06/18/20 14:30 96 Transfer of Care Handoff Completed per policy Notes Mental Status: alert / awake / arousable and participated in evaluation Patient Amnestic to Procedure: Yes Nausea / Vomiting: adequately controlled Pain: adequately controlled Airway Patency, RR, SpO2: stable & adequate BP & HR: stable & adequate Hydration State: stable & adequate Anesthetic Complications: no major complications apparent and Pt Satisfied with anesthetic care
--- NOTE | 2020-06-19 14:30 | History & Physical Bridge Note ---
Date of Service June 19, 2020 History & Physical Bridge Note I have examined the patient, reviewed the History & Physical and in the interval since the performance of the History & Physical I have noted the following changes of clinical significance: Patient evaluated following cholecystectomy. EBL 20cc. IVF 1200cc. Patient denies pain at this time, nausea, vomiting. Ate large meal after surgery, tolerated well. Had previously been having falls as an outpatient but admits he was drinking quite a bit of alcohol but has subsequently stopped this. Was seen in the ER and sent to [place] where he had a repeat fall and states his left leg gave out and went under his right leg he believes. Patient not the best historian, and states he lives with his brother Pasquale and he takes care of medications for the patient and converses with Kenrick Gonzalez from [place]. Denies headache, visual changes, or loss of consciousness. 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 Had nausea, abdominal pain but that is controlled at this time. Patient not aware of low vitamin D level in April and asking to contact his brother at [phone]. Called x 2 without dial tone. No other numbers available. Will attempt to reach out again this evening and again tomorrow if needed, as patient had metformin decreased in recent past due to falls. CT head with old appearing infarcts, not on aspirin therapy outpatient, and has never been seen by Neurology in the past per his account. Acute Cholecystitis CTA/P with Findings compatible with acute cholecystitis with moderate pericholecystic infiltrations/edema. There is a 2.2 cm hypodense focus along the inferior margin of the left hepatic lobe near the nikhil hepatis which may reflect focal edema versus developing pericholecystic fluid collection. Of note, an ill-defined hypodense 2.2 cm focus along the inferior margin of the left hepatic lobe near the nikhil hepatis on image 27 series 7 US GB with confirmation Admitted by general surgery, medicine on consult for medical management S/P Lap christal with Dr. Bland for Gangrenous Gallbladder -- pathology sent. EBL 20cc. Pre-op h/h 13.8/40.6 (was 14.5/41 on admission). JAYSON with 20cc bloody drainage WBC about the same, trending down On Zosyn for abx (day 2 of tx) LR @ 80cc/hr ECHO done for reported syncope hx with normal LV systolic function. Mild asymmetric LVH. No significant valvular heart disease. To have Holter monitor per outpatient PCP note Neurology on consult Hx alcohol use but nothing further. B12 elevated. Resumed lisinopril for HTN 176/75 post-operatively Carotid Dopplers pending Hypokalemia 3.4 on AM labs -- ordered 20meq PO and MACKENZIE resumed as above AST/ALT trending down Will add PT/OT evals for tomorrow BCx pending Urine cx pending Labs in AM Acute Kidney Injury Cr 1.56 on admission. Baseline around 1 Cr normalized with IVF to 1.14 MACKENZIE resumed Vitamin D deficiency/Hypercalcemia Ca 9.8 with albumin 2.4 PTH wnl 19.9 Low back in Apr 2020 but does not appear to have started any supplementation Start 2,000 units daily Follow up with PCP Diabetes Mellitus II Last A1c 9.0 April and on metformin outpatient. Per PCP note, recently reduced dosing but had not started. ISS while inpatient Repeat A1c with AM labs HLD Hx noted although recent lipiid panel without abn Apr 2020. Ideally would be on low dose statin for prevention given DM Supervising Physician Co-Signing Physician Notes PA Supervision Note: I did not personally see or examine the patient today, but I verified all pizarro points of LISETTE Baig's assessment and plan with the following exceptions/additions: Tighten down Novolog sliding scale for now for hyperglycemia but will likely need to add on Lantus tomorrow. Has HgbA1C 9.0%
--- NOTE | 2020-06-19 14:56 | Operative Report (OR) ---
DATE OF OPERATION: 06/19/2020 PREOPERATIVE DIAGNOSIS: Acute cholecystitis. POSTOPERATIVE DIAGNOSES: Acute cholecystitis, gangrenous gallbladder, cholelithiasis. OPERATION: Laparoscopic subtotal cholecystectomy. SURGEON: Patt Bland MD. ANESTHESIA: General. ESTIMATED BLOOD LOSS: About 20 mL, JAYSON drainage x1. COMPLICATIONS: None. FINDINGS: Significant inflammation on the gallbladder with acute cholecystitis with gangrenous gallbladder with gallstone . INDICATIONS FOR THE PROCEDURE: This is a 64-year-old gentleman who was admitted to hospital for weakness and acute cholecystitis and I recommend to do the laparoscopic cholecystectomy, possible open, possible cholangiogram. I did talk to the patient and the patient's brother about the benefit, the risk, alternate procedure. I indicated the risks may include but not limited such as bleeding, infection, injury to common bile duct, bile leak, abscess, sepsis, myocardial infarction, DVT, stroke, even may need ERCP. They understand, they signed informed consent and I answered all questions. DETAILS OF PROCEDURE: We brought the patient to the OR, put the patient in the supine position. The patient received SCD on bilateral legs to prevent DVT. Also, patient received 3.375 grams Zosyn IV for prophylactic antibiotic. The patient received general anesthesia without difficulty. The abdomen was prepped and draped in routine sterile fashion. After timeout, I injected the local anesthesia by using 1% lidocaine mixed with 0.5% Marcaine just above the umbilicus. Then I made a small incision just above umbilicus, opened fascia and opened peritoneum under direct vision, put a Rhoda trocar in, connected to CO2 to create pneumoperitoneum. Flow rate is 6 liter per minute. Pressure not more than 14 mmHg. Once we got a nice pneumoperitoneum, we put the camera in, looked around the abdomen, shows normal finding on the liver. However, the gallbladder shows a significant gangrenous gallbladder with significant inflammation. Once confirmed diagnosis of acute cholecystitis with gangrenous gallbladder, we put another three 5 mm trocar on the right upper quadrant. Once all trocars in, we peeled all omental adhesions to the gallbladder and gallbladder had significant distention, we used a large needle to decompress the gallbladder first and then we used the grasper to hold the gallbladder, put in the direction to the diaphragm. At this moment, we found the patient had significant gangrenous gallbladder with significant inflammation on the cystic duct area, I decided to use the top-down technique and based on the significant inflammation with gangrenous gallbladder, I have to do a subtotal cholecystectomy. We removed more than 90% of the gallbladder tissue and leave less 10% of the tissue over the gallbladder, near the cystic duct. Once we removed the contents. There were some small gallstones and made sure no gallstones left behind. Then we used the suture to close the gallbladder opening using 2-0 Vicryl continuous running. Rechecked and no bile leak, no active bleeding. Then we, through the catch bag we removed the gallbladder and then we put one 10 mm JAYSON drainage near the gallbladder fossa area. Hemostat was obtained. Then we removed all trocar under direct vision. No active bleeding from the trocar sites. Then, we used a 2-0 silk to fix the JAYSON drainage on the skin. Pneumoperitoneum was released, now closed the umbilical incision, fascial layer by using 0 Vicryl [id number] x2, closed subcutaneous layer by using 2-0 Vicryl interruptedly, closed skin by using 4-0 Vicryl continuous running, closed another three 5 mm trocar site of skin only by using 4-0 Vicryl. Then, we put the dressing on. The patient tolerated the procedure well. All instrument, needle and sponge count were correct x2 at the end of the case. The patient transferred to recovery room in stable condition. After the procedure, I did talk to the patient' s brother on the phone. We informed him about the OR finding and the procedure we did, he understands. I attest to the content of the Intraoperative Record and any orders documented therein. Any exception s are noted below.
[2020-06-19 18:11] LABS: Magnesium 2.1 mg/dl (1.8-2.4)
[2020-06-19] MEDS ORDERED: Nursing to Pharmacy Communication SCH (19:15)
[2020-06-20] MEDS: PIPERACILLIN/TAZOBACTAM 3.375 GM in DEXTROSE 5% 100 ML IV SCH ×3 (03:23→19:53)
[2020-06-20 07:33] LABS: Basophils # (auto) 0.01 K/uL (0-0.2); Basophils % (auto) 0.1 %; Eosinophils # (auto) 0.15 K/uL (0-0.5); Eosinophils % (auto) 1.5 %; Hematocrit (blood only) 35.5 % (42-52); Hemoglobin 12.1 g/dL (14.0-18.0); Immature Granulocytes # (auto) 0.04 K/uL (0.00-0.02); Immature Granulocytes % (auto) 0.4 %; Lymphocytes # (auto) 2.08 K/uL (1.2-3.4); Lymphocytes % (auto) 20.3 %; Mean Corpuscular Hemoglobin 28.9 pg (25-34); Mean Corpuscular Hgb Conc 34.1 g/dL (32-36); Mean Corpuscular Volume 84.9 fL (80-100); Mean Platelet Volume 9.5 fL (7.4-10.4); Monocytes # (auto) 1.06 K/uL (0.11-0.59); Monocytes % (auto) 10.4 %; Neutrophils % (auto) 67.3 %; Platelet Count 360 K/uL (130-400); RDW Coefficient of Variation 13.9 % (11.5-14.5); RDW Standard Deviation 43.5 fL (36.4-46.3); Red Blood Count 4.18 M/uL (4.7-6.1); White Blood Count 10.24 K/uL (4.8-10.8)
--- NOTE | 2020-06-20 07:43 | Ultrasound Report ---
ULTRASOUND OF THE CAROTID ARTERIES CLINICAL HISTORY: syncope COMPARISON STUDY: None. TECHNIQUE: Real-time, grayscale, and color Doppler sonography of the carotid arteries was performed. Imaging reviewed in the transverse and longitudinal planes. NASCET criteria was utilized for stenosis calcification. FINDINGS: There is extensive atherosclerotic plaque present bilaterally. The peak systolic velocity within the right internal carotid artery is 342 cm/sec. The systolic velocity ratio of right internal to common carotid artery is 4. The peak systolic velocity within the left internal carotid artery is 504 cm/sec. The systolic velocity ratio left internal to common carotid artery is 4.8. The mid and distal internal carotid artery waveforms are abnormal bilaterally. Findings are indicative of critical bilateral carotid artery stenosis. Antegrade flow is seen in the vertebral arteries. The external carotid arteries are patent. Blood pressure in the right arm measured 132 mm/Hg. Blood pressure in the left arm measured 127 mm/H g. IMPRESSION: 1. Critical bilateral internal carotid artery stenosis with elevated velocities and abnormal distal w aveforms. ACT 112: Negative or not required by law. Electronically signed by: Darryn Rojas M.D. 06/20/2020 7:41 AM
[2020-06-20 08:16] LABS: Albumin Globulin Ratio 0.5 (0.9-2); Albumin Level 2.1 gm/dl (3.4-5.0); BUN Creatinine Ratio 15.2 (10-20); Bilirubin,Total 0.7 mg/dl (0.2-1); Calcium 9.2 mg/dl (8.5-10.1); Creatinine Clr Calc Pharmacy 83.7 ml/min; Est GFR (African American) 104.5; Est GFR (Non-African American) 90.1; Globulin 4.2 gm/dl (2.5-4.0); Total Protein 6.3 gm/dl (6.4-8.2)
[2020-06-20] MEDS: LACTATED RINGER'S 1,000 ML IV SCH ×2 (08:43→19:50)
[2020-06-20] MEDS: lisinopril 20 MG TAB PO SCH (08:44)
[2020-06-20] MEDS: CHOLECALCIFEROL 1,000 UNITS 25 MCG TAB PO SCH (08:45)
[2020-06-20] MEDS: INSULIN ASPART 100 UNITS/ML 3 ML PEN SC SCH ×4 (08:47→22:08)
[2020-06-20] MEDS: ATORVASTATIN 40 MG TAB PO SCH (08:47)
[2020-06-20] MEDS: ASPIRIN 81 MG ECTAB PO SCH (08:48)
--- NOTE | 2020-06-20 09:09 | Neurology Consultation ---
Date of Consultation June 20, 2020 Assessment & Plan (1) Chronic arterial ischemic stroke: (2) Carotid stenosis, bilateral: Multifocal chronic cerebral infarcts involving the right parietal and bilateral frontal lobes as well as both caudate heads and thalami. The larger stroke appears to be within the right parietal lobe and may be responsible for some of his subtle left-sided visual and sensory inattention. He is also a bit inattentive in general which could be related to the bilateral frontal lobe infarcts. He has critical bilateral internal carotid artery stenosis identified on ultrasound. Follow-up CT angiography of the neck has been completed and also suggest bilateral critical stenoses (greater than 90%) of the proximal internal carotid arteries. He has been evaluated by vascular surgery and has been started on aspirin 81 mg/day and atorvastatin 40 mg/day. He is status post laparoscopic cholecystectomy done yesterday. Patient will need further evaluation and management with vascular surgery in the outpatient setting as he will likely need carotid endarterectomy. Patient will need to continue to follow with his primary care physician for ongoing management of hypertension, hyperlipidemia, and poorly controlled diabetes mellitus. History of Present Illness Reason for Consultation: Frequent falls, remote infarcts, no known history of TIA or stroke Requesting Physician: Kareen Baig PA-C Attending Physician: Patt Bland MD History of Present Illness The patient is a 64-year-old male who presented to the emergency department on June 18, 2020 complaining of multiple falls, weakness, feeling off balance, and sometimes stumbling. He also reported poor p.o. intake. A CT of the head have revealed multiple chronic infarcts. A CT of the abdomen and pelvis were performed as well and suggested acute cholecystitis. The patient underwent a laparoscopic cholecystectomy on June 19, yesterday morning. Postop diagnosis was acute cholecystitis, gangrenous gallbladder, and cholelithiasis. He did have an echocardiogram completed yesterday that revealed normal left ventricular systolic function, mild asymmetric left ventricular hypertrophy, no significant valvular disease. An electrocardiogram completed on June 18 revealed a normal sinus rhythm, 91 bpm. A carotid ultrasound completed yesterday revealed critical bilateral internal carotid artery stenosis with elevated velocities and abnormal distal waveforms. I did review the images corresponding to this patient CT of the head completed on June 18, 2020. There are areas of encephalomalacia involving both frontal lobes as well as the right parietal lobe suggestive of chronic infarcts. There are bilateral caudate head infarcts and bilateral thalamic infarcts as well. Past medical history is notable for hypertension, hyperlipidemia, and uncontrolled type 2 diabetes mellitus. Hemoglobin A1c from this past April was 9.0. The patient was evaluated by the vascular surgery service this morning. A CT angiogram of the neck has been recommended with possible recommendation for endarterectomy. Aspirin 81 mg/day and atorvastatin have been started. This morning, the patient reports that he has been feeling fine. He has been able to ambulate freely in his hospital room and down the corridor. Yet, he does endorse some difficulty with balance and falls prior to his current hospitalization, as documented above. He denies any specific difficulty with vision, speech or swallowing, language comprehension, or focal weakness. He denies a history of stroke or TIA. Allergies Allergy/AdvReac Type Severity Reaction Status Date / Time No Known Allergies Allergy Verified 06/18/20 17:36 Home Medications Medication Instructions Recorded Confirmed Type amlodipine 5 mg tablet 5 mg PO HS #30 tab 06/18/20 06/18/20 Rx betamethasone dipropionate 1 applic TOPICAL BID PRN 06/18/20 06/18/20 History lisinopril 20 mg PO QAM 06/18/20 06/18/20 History metformin 1,000 mg PO BIDM 06/18/20 06/18/20 History Patient History Medical History Carotid stenosis, bilateral Depression Diabetes type 2, uncontrolled (05/08/20) initial hemoglobin noted at 9%-04/2020 Frozen shoulder syndrome Hyperlipidemia Hypertension Left ankle pain Psoriasis Vitamin D deficiency Surgical History No history of previous surgery patient notes when very young fractured skull but does not know the name of procedure he had Family History Mother Myocardial infarction Denies family history of Ovarian cancer Prostate cancer Breast cancer Colorectal cancer Social History Smoking Status: Former smoker Tobacco Type: Smokeless Tobacco (Dip or Chew) Second Hand Exposure: No; Hx Alcohol Use: No Hx Substance Use: No Preferred Language: Bulgarian Communication Ability: Effective Visual Impairment: No Limitations Hearing Ability: Hard of Hearing Placement Assistant Required: No Beliefs That Will Affect Care: None marital status: Current Living Situation: Alone current occupational status: retired How many Children do You have: 0 Feels Safe at Home: Yes Childhood Exposure to Second-Hand Smoke: No caffeine: Yes during the past year weight has: remained stable Dental Care, Regularly: No Physical Activity Frequency: Daily Seatbelt Use: always Sunscreen Use: No Assistive Devices: Walker Exam (Neuro) Physical Exam: I performed a detailed neurological examination this morning including assessment of mental status, cranial nerve function, sensation, deep tendon reflexes, coordination, and motor function. Pertinent findings are described below. The patient exhibits normal orientation. Attention is slightly reduced. No difficulty naming objects or understanding language. He does display some mild visual neglect to the left. Patient also displayed some mild sensory neglect to the left including variable difficulty with double simultaneous stimulation to the left side. There is no dysmetria with [id number] or [id number]. No evidence of an obvious hemiparesis. No abnormal movements. Results & Data ([facility]) Vital Signs (Past 12 Hours) Vital Signs Temp Pulse Resp BP BP Pulse Ox 06/20/20 07:32 58 L 18 138/70 96 06/20/20 03:31 36.8 C 62 15 137/71 95 06/19/20 23:55 36.9 C 68 15 135/71 96 PG Care Time/CCT Total # of Minutes Spent Total Time Spent with Patient: Total time spent is greater than 50% in coordination of care (as documented) at patient's floor/unit and/or counseling patient: 70 minutes Coding Level of Care Code 14395 Initial Inpt Care Lvl 3 Diagnoses Chronic arterial ischemic stroke I69.30 Carotid stenosis, bilateral I65.23
[2020-06-20] MEDS: ENOXAPARIN INJ 40 MG/0.4 ML SYR SQ SCH (10:04)
--- NOTE | 2020-06-20 11:56 | Consultation ---
Date of Consultation June 20, 2020 Assessment & Plan (1) Carotid stenosis, bilateral: Pt with asymptomatic severe BL ICA stenosis. Recommend CTA neck to verify. Discussed diagnosis with pt and possible recommendation for endarterectomy. Do recommend antiplatelet therapy with 81mg ASA QD preventatively if no contraindications per medicine/gen surgery. Will see in office in 2 weeks to discuss CTA and surgery recommendations. Please call if needed. History of Present Illness Reason for Consultation: carotid stenosis Attending Physician: Patt Bland MD History of Present Illness 64 yo m with hx of DMII, HTN, hyperlipidemia, depression, admitted with acute cholecystitis and POD #1 after lap cholecystectomy by Dr Bland, seen in consultation today for critical BL carotid stenosis noted on carotid US. Pt denies any hx of CVA or TIA in past, however, his head CT demonstrates chronic infarcts. Pt states his abd pain is improved. Denies DUNLAP, fever, chest pain, N/V, rest pain, claudication sx. Denies amaurosis, unilateral extermity weakness numbness, facial droop, difficulty speaking or swallowing. Carotid US demonstrates severe BL ICA stenosis by velocity criteria. Allergies Allergy/AdvReac Type Severity Reaction Status Date / Time No Known Allergies Allergy Verified 06/18/20 17:36 Home Medications Medication Instructions Recorded Confirmed Type amlodipine 5 mg tablet 5 mg PO HS #30 tab 06/18/20 06/18/20 Rx betamethasone dipropionate 1 applic TOPICAL BID PRN 06/18/20 06/18/20 History lisinopril 20 mg PO QAM 06/18/20 06/18/20 History metformin 1,000 mg PO BIDM 06/18/20 06/18/20 History Patient History Medical History Depression Diabetes type 2, uncontrolled (05/08/20) initial hemoglobin noted at 9%-04/2020 Frozen shoulder syndrome Hyperlipidemia Hypertension Left ankle pain Psoriasis Vitamin D deficiency Surgical History No history of previous surgery patient notes when very young fractured skull but does not know the name of procedure he had Family History Mother Myocardial infarction Denies family history of Ovarian cancer Prostate cancer Breast cancer Colorectal cancer Social History Smoking Status: Former smoker Tobacco Type: Smokeless Tobacco (Dip or Chew) Second Hand Exposure: No; Hx Alcohol Use: No Hx Substance Use: No Preferred Language: Congolese Communication Ability: Effective Visual Impairment: No Limitations Hearing Ability: Hard of Hearing [employer] [place] Operator Required: No Beliefs That Will Affect Care: None marital status: Current Living Situation: Alone current occupational status: retired How many Children do You have: 0 Feels Safe at Home: Yes Childhood Exposure to Second-Hand Smoke: No caffeine: Yes during the past year weight has: remained stable Dental Care, Regularly: No Physical Activity Frequency: Daily Seatbelt Use: always Sunscreen Use: No Assistive Devices: Walker Review of Systems Review of Systems: All systems reviewed & are unremarkable except as noted in HPI & below Physical Exam Constitutional: WD/WN, vitals as above Eyes: PERRL, conjunctivae normal, anicteric sclerae ENMT: Ears: no hearing impairment Neck: normal visual inspection and trachea midline Respiratory: normal respiratory effort, lungs clear to auscultation Cardiovascular: RRR, no murmur, no edema Vessels: + carotid bruit, femoral pulses present, posterior tibial pulses present, dorsalis pedis pulses present, brachial pulses present and radial pulses present; + abnormal peripheral pulses Extremities: normal capillary refill; no edema Gastrointestinal (Abdomen): Inspection/Auscultation: abdomen normal to inspection Percussion/Palpation: + abdomen tender and abdomen soft Musculoskeletal: no cyanosis or clubbing, extremities motor strength 5/5 Skin: no rashes, warm and dry Neurologic: moves all extremities and awake; no focal motor deficits and not confused Psychiatric: A+Ox3, euthymic affect Results & Data ([facility]) Vital Signs (Past 12 Hours) Vital Signs Temp Pulse Resp BP BP Pulse Ox 06/20/20 07:32 58 L 18 138/70 96 06/20/20 03:31 36.8 C 62 15 137/71 95 06/19/20 23:55 36.9 C 68 15 135/71 96
--- NOTE | 2020-06-20 12:03 | Hospitalist Progress Note ---
Date of Service June 20, 2020 Assessment & Plan (1) Acute cholecystitis: pt is a 64 year-old male who presents with ER with weakness, chills, general malaise Found to have acute christal on imaging General surgery admitted, hospitalist consulted for medical management * POD #1 s/p subtotal lap christal for GANGRENOUS GALLBLADDER with Dr. Ryan on 06/19. * EBL 20cc. * h/h dropped to 12.1/35.5 -- acute blood loss anemia following surgery as well as dilutional from IVF * JAYSON with 180cc. * Pain control, antiemetics, PT/OT, DVT prophylaxis per primary service * Discussed with Dr. ryan about DVT prophylaxis and placed on Lovenox 40SQ daily, started 06/20 * Bowel regimen added * Continue Zosyn (on day 2 of therapy) * LR @ 100cc/hr * Continue to monitor labs See below regarding recent falls/weakness (2) Weakness: * Recently with multiple falls but no reported LOC * CT Head with old infarcts -- patient states "history of mini strokes" but not on daily ASA 81mg --> discussed and started today along with lipitor 40mg daily * ECHO without valvular dysfunction or reduced EF/wma * Ordered carotid dopplers --> CRITICAL BILATERAL STENOSIS * Dr. Mancia consulted --> ordered CTA which confirmed >90% bilateral stenosis * --> Plans for outpatient follow up and planned endarterectomy for treatment * Neurology consulted as well -- consult pending (3) Carotid stenosis, bilateral: * CRITICAL -- BILATERAL >90% stenosis * See above under weakness -- likely cause of repeated falls * ASA 81mg , lipitor 40mg initiated today * Vascular surgery consulted * Outpatient intervention planned (4) Chronic arterial ischemic stroke: (5) Hypertension: * Chronic. Controlled currentyl 138/70 * Continue lisinopril 20mg, amlodipine 5mg daily * Continue to monitor (6) Hyperlipidemia: * Most recent lipid panel wnl, however given above and pt with DM, initiated lipitor .Will need f/u with PCP (7) Diabetes type 2, uncontrolled: * A1c 9.0 -- to be on metformin 1,000 BID but was reduced to 500mg daily due to thoughts it was causing him to not feel well * ISS while inpatient * Would resume 1g BID at discharge and encourage diet/exercise and f/u with PCP for repeat A1c in 3 months for possible initiation of additional agents * BSGs improving * Continue to monitor (8) Falling: due to above (9) DVT prophylaxis: * Lovenox 40mg SQ daily Dispo: continued inpatient stay Thank you for allowing hospitalist to participate in the care of Mr. Bautista. Hospitalist service will continue to follow along. Admission and Anticipated Discharge Date Admission Date: June 18, 2020 Supervising Physician Co-Signing Physician Notes PA Supervision Note: I did not personally see or examine the patient today, but I verified all pizarro points of LISETTE Baig's assessment and plan with the following exceptions/additions: None Subjective Patient evaluated this morning. Feeling well. Not having abdominal pain, but tender around incisions. Believed JAYSON drained this morning but needs drained now. Walked the halls with therapy this morning. Not passing gas or BM yet. +BS and will add bowel regimen. Discussed CT and carotid and will get vascular consulted for endarterectomy as outpatient and CTA while inpatient for further imaging prior to f/u appointment. Discussed starting lipitor and ASA given findings. Patient agreeable. No fever, chills, chest pain, shortness of breath, nausea or vomiting. Questions/concerns addressed at this time. Review of Systems Review of Systems: All systems reviewed & are unremarkable except as noted in HPI & below Physical Exam Constitutional: WD/WN, vitals as above cooperative and comfortable; no acute distress needs frequent re-orientation to questioning, easily distracted Eyes: + anicteric sclerae and PERRL ENMT: Ears: no hearing impairment Neck: trachea midline, no thyromegaly Respiratory: normal respiratory effort, lungs clear to auscultation Cardiovascular: Rate/Rhythm: regular rate and regular rhythm Vessels: no JVD Extremities: no edema + carotid bruit decreased but palpable peripheral pulses Gastrointestinal (Abdomen): Inspection/Auscultation: normal bowel sounds Percussion/Palpation: + abdomen tender (around incisions/JAYSON drain, minimal) and abdomen soft; no guarding and abdomen not rigid JAYSON drain with 75cc bloody drainage Musculoskeletal: no cyanosis or clubbing, extremities motor strength 5/5 Skin: warm, dry Neurologic: PERRL, EOMI, accommodation nl, no face palsy, no dysarthria decreased sensation to pin-prick left side LE Psychiatric: Orientation: alert, oriented to person, oriented to place, oriented to time and cooperative Lymphatic: no cervical or axillary lymphadenopathy Results & Data Results & Data ([facility]) Vital Signs (Past 12 Hours) Vital Signs Temp Pulse Resp BP BP Pulse Ox 06/20/20 07:32 58 L 18 138/70 96 06/20/20 03:31 36.8 C 62 15 137/71 95 Laboratory Results 06/20/20 06/20/20 06/20/20 Range/Units 12:04 08:30 07:17 WBC (4.8-10.8) K/uL RBC (4.7-6.1) M/uL Hgb (14.0-18.0) g/dL Hct (42-52) % MCV (80-100) fL MCH (25-34) pg MCHC (32-36) g/dL RDW Std Deviation (36.4-46.3) fL RDW Coeff of James (11.5-14.5) % Plt Count (130-400) K/uL MPV (7.4-10.4) fL Immature Gran % (Auto) % Neut % (Auto) % Lymph % (Auto) % [place] % (Auto) % Eos % (Auto) % Baso % (Auto) % Neut # (Auto) (1.4-6.5) K/uL Lymph # (Auto) (1.2-3.4) K/uL [place] # (Auto) (0.11-0.59) K/uL Eos # (Auto) (0-0.5) K/uL Baso # (Auto) (0-0.2) K/uL Immature Gran # (Auto) (0.00-0.02) K/uL Sodium 138 (136-145) mmol/L Potassium 4.0 D (3.5-5.1) mmol/L Chloride 102 (98-107) mmol/L Carbon Dioxide 30 (21-32) mmol/L Anion Gap 6.0 (3-11) BUN 13 (7-18) mg/dl Creatinine 0.88 (0.6-1.4) mg/dl Est Cr Clr Drug Dosing 83.7 ml/min Est GFR ( Amer) 104.5 Est GFR (Non-Af Amer) 90.1 BUN/Creatinine Ratio 15.2 (10-20) Glucose 161 H (70-99) mg/dl POC Glucose 135 H 157 H (70-99) mg/dl Calcium 9.2 (8.5-10.1) mg/dl Magnesium (1.8-2.4) mg/dl Total Bilirubin 0.7 (0.2-1) mg/dl AST 24 (15-37) U/L ALT 86 H (12-78) U/L Alkaline Phosphatase 83 (45-117) U/L Total Protein 6.3 L (6.4-8.2) gm/dl Albumin 2.1 L (3.4-5.0) gm/dl Globulin 4.2 H (2.5-4.0) gm/dl Albumin/Globulin Ratio 0.5 L (0.9-2) Specimen Hemolysis 06/20/20 06/19/20 06/19/20 Range/Units 07:17 20:48 17:15 WBC 10.24 (4.8-10.8) K/uL RBC 4.18 L (4.7-6.1) M/uL Hgb 12.1 L (14.0-18.0) g/dL Hct 35.5 L (42-52) % MCV 84.9 (80-100) fL MCH 28.9 (25-34) pg MCHC 34.1 (32-36) g/dL RDW Std Deviation 43.5 (36.4-46.3) fL RDW Coeff of James 13.9 (11.5-14.5) % Plt Count 360 (130-400) K/uL MPV 9.5 (7.4-10.4) fL Immature Gran % (Auto) 0.4 % Neut % (Auto) 67.3 % Lymph % (Auto) 20.3 % [place] % (Auto) 10.4 % Eos % (Auto) 1.5 % Baso % (Auto) 0.1 % Neut # (Auto) 6.90 H (1.4-6.5) K/uL Lymph # (Auto) 2.08 (1.2-3.4) K/uL [place] # (Auto) 1.06 H (0.11-0.59) K/uL Eos # (Auto) 0.15 (0-0.5) K/uL Baso # (Auto) 0.01 (0-0.2) K/uL Immature Gran # (Auto) 0.04 H (0.00-0.02) K/uL Sodium (136-145) mmol/L Potassium (3.5-5.1) mmol/L Chloride (98-107) mmol/L Carbon Dioxide (21-32) mmol/L Anion Gap (3-11) BUN (7-18) mg/dl Creatinine (0.6-1.4) mg/dl Est Cr Clr Drug Dosing ml/min Est GFR ( Amer) Est GFR (Non-Af Amer) BUN/Creatinine Ratio (10-20) Glucose (70-99) mg/dl POC Glucose 208 H 243 H (70-99) mg/dl Calcium (8.5-10.1) mg/dl Magnesium (1.8-2.4) mg/dl Total Bilirubin (0.2-1) mg/dl AST (15-37) U/L ALT (12-78) U/L Alkaline Phosphatase (45-117) U/L Total Protein (6.4-8.2) gm/dl Albumin (3.4-5.0) gm/dl Globulin (2.5-4.0) gm/dl Albumin/Globulin Ratio (0.9-2) Specimen Hemolysis 06/19/20 Range/Units 06:01 WBC (4.8-10.8) K/uL RBC (4.7-6.1) M/uL Hgb (14.0-18.0) g/dL Hct (42-52) % MCV (80-100) fL MCH (25-34) pg MCHC (32-36) g/dL RDW Std Deviation (36.4-46.3) fL RDW Coeff of Jaems (11.5-14.5) % Plt Count (130-400) K/uL MPV (7.4-10.4) fL Immature Gran % (Auto) % Neut % (Auto) % Lymph % (Auto) % [place] % (Auto) % Eos % (Auto) % Baso % (Auto) % Neut # (Auto) (1.4-6.5) K/uL Lymph # (Auto) (1.2-3.4) K/uL [place] # (Auto) (0.11-0.59) K/uL Eos # (Auto) (0-0.5) K/uL Baso # (Auto) (0-0.2) K/uL Immature Gran # (Auto) (0.00-0.02) K/uL Sodium (136-145) mmol/L Potassium (3.5-5.1) mmol/L Chloride (98-107) mmol/L Carbon Dioxide (21-32) mmol/L Anion Gap (3-11) BUN (7-18) mg/dl Creatinine (0.6-1.4) mg/dl Est Cr Clr Drug Dosing ml/min Est GFR ( Amer) Est GFR (Non-Af Amer) BUN/Creatinine Ratio (10-20) Glucose (70-99) mg/dl POC Glucose (70-99) mg/dl Calcium (8.5-10.1) mg/dl Magnesium 2.1 (1.8-2.4) mg/dl Total Bilirubin (0.2-1) mg/dl AST (15-37) U/L ALT (12-78) U/L Alkaline Phosphatase (45-117) U/L Total Protein (6.4-8.2) gm/dl Albumin (3.4-5.0) gm/dl Globulin (2.5-4.0) gm/dl Albumin/Globulin Ratio (0.9-2) Specimen Hemolysis Diagnostic Findings B/L Carotid Doppler FINDINGS: There is extensive atherosclerotic plaque present bilaterally. The peak systolic velocity within the right internal carotid artery is 342 cm/sec. The systolic velocity ratio of right internal to common carotid artery is 4. The peak systolic velocity within the left internal carotid artery is 504 cm/sec. The systolic velocity ratio left internal to common carotid artery is 4.8. The mid and distal internal carotid artery waveforms are abnormal bilaterally. Findings are indicative of critical bilateral carotid artery stenosis. Antegrade flow is seen in the vertebral arteries. The external carotid arteries are patent. Blood pressure in the right arm measured 132 mm/Hg. Blood pressure in the left arm measured 127 mm/Hg. IMPRESSION: 1. Critical bilateral internal carotid artery stenosis with elevated velocities and abnormal distal waveforms. CT angio neck wo/w con CLINICAL HISTORY: carotid stenosis COMPARISON STUDY: Carotid Doppler ultrasound dated 06/19/2020 FINDINGS: Noncontrast images were obtained through the neck. CT angiography was then performed a dynamic helical fashion during intravenous administration of 120 cc of Optiray 320. MIP images were acquired. A dose reduction technique was utilized according to the principles of ALARA. There is a critical greater than 90% stenosis of the right internal carotid artery origin. Atheromatous changes are also present within the carotid siphon and cavernous carotid with mild to moderate luminal narrowing. There is a critical greater than 90% stenosis of the left internal carotid arter y origin. Atheromatous changes are also present within the carotid siphon and cavernous carotid with mild to moderate luminal narrowing There is a 50% diameter stenosis of the left vertebral artery origin. There is no evidence of vertebral artery dissection. IMPRESSION: 1. Bilateral critical stenoses (greater than 90%) of the proximal internal carotid arteries. ACT 112: Negative or not required by law. PG Care Time/CCT Total # of Minutes Spent Total Time Spent with Patient: Total time spent is greater than 50% in coordination of care (as documented) at patient's floor/unit and/or counseling patient: Coding Level of Care Code 86292 Subseq Hosp Care Lvl 3 Diagnoses Acute cholecystitis K81.0 Weakness R53.1 Carotid stenosis, bilateral I65.23 Chronic arterial ischemic stroke I69.30 Hypertension I10 Hyperlipidemia E78.5 Diabetes type 2, uncontrolled E11.65 Falling R29.6 DVT prophylaxis Z29.9
[2020-06-20] MEDS ORDERED: OPTIRAY 320 125ml IV ONE (12:45)
[2020-06-20] MEDS ORDERED: BETAMETHASONE DIP AUG (DIPROLENE) 0.05% CR 15 GM TUBE EXT PRN (12:48)
[2020-06-20] MEDS: POLYETHYLENE (MIRALAX) 17 GM PACK PO SCH (12:50)
[2020-06-20] MEDS: DOCUSATE SODIUM 100 MG CAP PO SCH ×2 (12:50→22:02)
--- NOTE | 2020-06-20 13:02 | CT Scan Report ---
CT angio neck wo/w con CLINICAL HISTORY: carotid stenosis COMPARISON STUDY: Carotid Doppler ultrasound dated 06/19/2020 FINDINGS: Noncontrast images were obtained through the neck. CT angiography was then performed a dynamic helica l fashion during intravenous administration of 120 cc of Optiray 320. MIP images were acquired. A dos e reduction technique was utilized according to the principles of ALARA. There is a critical greater than 90% stenosis of the right internal carotid artery origin. Atheromato us changes are also present within the carotid siphon and cavernous carotid with mild to moderate lum inal narrowing. There is a critical greater than 90% stenosis of the left internal carotid artery origin. Atheromatou s changes are also present within the carotid siphon and cavernous carotid with mild to moderate heather nal narrowing There is a 50% diameter stenosis of the left vertebral artery origin. There is no evidence of verteb ral artery dissection. IMPRESSION: 1. Bilateral critical stenoses (greater than 90%) of the proximal internal carotid arteries. ACT 112: Negative or not required by law. Electronically signed by: Darryn Rojas M.D. 06/20/2020 1:00 PM
--- NOTE | 2020-06-20 13:15 | Surgery Progress Note ---
Date of Service F/U S/P laparoscopic subtotal cholecystectomy, JAYSON x1, POD 1 pt is doing fine, no abdominal pain, tolerated the diet, no nausea, no vomiting, no fever. JAYSON 180 ml clear June 20, 2020 Assessment & Plan (1) Acute cholecystitis: pt is a 64 year-old male who presents with ER with weakness, U/S study diagnosis: acute cholecystitis, IMP: acute cholecystitis, DM, weakness, I recommend to admit pt to hospital, to do laparoscopic cholecystectomy possible open or cholangiogram tomorrow, D/W benefits, risks and alternatives of the surgery, the risks - infection, bleeding, injury CBD, bowel, SD, DVT, stroke, , pt and his brother understood, they agree with the plan, I answered all questions, consult hospitalist for co-manage this pt. 06/20/2020 1:11PM F/U S/P laparoscopic subtotal cholecystectomy, I update information about OR finding and the procedure pt had, pt understood, I answered all questions, ASA 81 mg po once day, lovenox 40mg SQ once a day, continue iv antibiotic regular diet will F/U (2) Weakness: Admission and Anticipated Discharge Date Admission Date: June 18, 2020 Supervising Physician Co-Signing Physician Notes LISETTE Supervision Note: I did not personally see or examine the patient today, but I verified all pizarro points of LISETTE Baig's assessment and plan with the following exceptions/additions: Tighten down Novolog sliding scale for now for hyperglycemia but will likely need to add on Lantus tomorrow. Has HgbA1C 9.0% Subjective Patient evaluated this morning. Feeling well. Not having abdominal pain, but tender around incisions. Believed JAYSON drained this morning but needs drained now. Walked the halls with therapy this morning. Not passing gas or BM yet. +BS and will add bowel regimen. Discussed CT and carotid and will get vascular consulted for endarterectomy as outpatient and CTA while inpatient for further imaging prior to f/u appointment. Discussed starting lipitor and ASA given findings. Patient agreeable. No fever, chills, chest pain, shortness of breath, nausea or vomiting. Questions/concerns addressed at this time. Review of Systems Constitutional: as per Subjective / HPI Eyes: as per Subjective / HPI Ear, Nose, Mouth, Throat: as per Subjective / HPI Respiratory: as per Subjective / HPI Cardiovascular: as per Subjective / HPI Additional Comments: HTN, hyperlipidemia Gastrointestinal: as per Subjective / HPI Genitourinary: + as per Subjective / HPI Musculoskeletal: as per Subjective / HPI vit D deficiency Integumentary: as per Subjective / HPI Neurologic: as per Subjective / HPI Psychiatric: as per Subjective / HPI depression Endocrine: as per Subjective / HPI DM Hematologic / Lymphatic: as per Subjective / HPI Allergy / Immunological: as per Subjective / HPI Physical Exam Constitutional: WD/WN, vitals as above well developed and well nourished Eyes: PERRL, conjunctivae normal, anicteric sclerae ENMT: external ear and nose normal, oropharynx normal Neck: trachea midline, no thyromegaly Respiratory: normal respiratory effort, lungs clear to auscultation normal respiratory effort Cardiovascular: RRR, no murmur, no edema Rate/Rhythm: regular rate and regular rhythm Gastrointestinal (Abdomen): normal bowel sounds, soft, nontender, no hepatosplenomegaly Percussion/Palpation: abdomen soft all incisions intact, no redness, NT, ND, JAYSON intact, Musculoskeletal: no cyanosis or clubbing, extremities motor strength 5/5 Skin: no rashes, warm and dry Neurologic: awake Psychiatric: Orientation: alert and oriented x 3 Results & Data ([facility]) Vital Signs (Past 12 Hours) Vital Signs Temp Pulse Resp BP BP Pulse Ox 06/20/20 07:32 58 L 18 138/70 96 06/20/20 03:31 36.8 C 62 15 137/71 95 Laboratory Results Abnormal lab results 06/19/20 06/19/20 06/20/20 Range/Units 17:15 20:48 07:17 RBC 4.18 L (4.7-6.1) M/uL Hgb 12.1 L (14.0-18.0) g/dL Hct 35.5 L (42-52) % Neut # (Auto) 6.90 H (1.4-6.5) K/uL [place] # (Auto) 1.06 H (0.11-0.59) K/uL Immature Gran # (Auto) 0.04 H (0.00-0.02) K/uL Glucose (70-99) mg/dl POC Glucose 243 H 208 H (70-99) mg/dl ALT (12-78) U/L Total Protein (6.4-8.2) gm/dl Albumin (3.4-5.0) gm/dl Globulin (2.5-4.0) gm/dl Albumin/Globulin Ratio (0.9-2) 06/20/20 06/20/20 06/20/20 Range/Units 07:17 08:30 12:04 RBC (4.7-6.1) M/uL Hgb (14.0-18.0) g/dL Hct (42-52) % Neut # (Auto) (1.4-6.5) K/uL [place] # (Auto) (0.11-0.59) K/uL Immature Gran # (Auto) (0.00-0.02) K/uL Glucose 161 H (70-99) mg/dl POC Glucose 157 H 135 H (70-99) mg/dl ALT 86 H (12-78) U/L Total Protein 6.3 L (6.4-8.2) gm/dl Albumin 2.1 L (3.4-5.0) gm/dl Globulin 4.2 H (2.5-4.0) gm/dl Albumin/Globulin Ratio 0.5 L (0.9-2)
[2020-06-20] MEDS ORDERED: GLUCAGON FOR INJ 1 MG VIAL SQ PRN (14:07)
[2020-06-20] MEDS ORDERED: GLUCOSE 40% GEL 15 GM TUBE PO PRN (14:07)
[2020-06-20] MEDS ORDERED: GLUCOSE 10 TABS/TUBE PO PRN (14:07)
[2020-06-20] MEDS ORDERED: DEXTROSE 50% 50 ML SYRINGE IV PRN (14:07)
[2020-06-20] MEDS ORDERED: CARBOHYDRATES FOR HYPOGLYCEMIA PO PRN (14:07)
[2020-06-20] MEDS ORDERED: PHARMACY GLYCEMIC MGMT CONSULT PRN (14:12)
--- NOTE | 2020-06-20 15:04 | Pharmacy Report ---
Pharmacy Glycemic Short Note 2 - Date of Service June 20, 2020 - Glycemic Short BSG Results (Last 24 hours): 06/19/20 06/19/20 06/20/20 17:15 20:48 07:17 Glucose 161 H POC Glucose 243 H 208 H 06/20/20 06/20/20 08:30 12:04 Glucose POC Glucose 157 H 135 H OUTPATIENT ANTIDIABETIC REGIMEN: * metformin 1 gm bid * A1c of ~9% 04/2020 ASSESSMENT: * 64 year old male presenting with weakness, multiple falls, poor PO intake. 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 CT of abdomen and pelvis suggesting cholecystitis. Underwent laparoscopic choleycystectomy yesterday, now POD 1 * Type 2 diabetes, last A1c of ~9% in 04/2020 indicating poor control. Had been started on metformin in April alone and encouraged to make dietary changes. Per provider notes, recent decrease in metformin dosing d/t multiple falls at home - will need to confirm this with patient. Unclear if he routinely checks BSG values * POD1, had received dexamethasone in OR therefore BSGs elevated in 200s last evening * Fasting BSG 157 mg/dL, lunch time BSG 135 mg/dL - likely steroids worn off by now and well controlled on SSI only * Plan to continue with same CF/CR for now, will consider adding basal on for this evening based up on BSG value PLAN FOR INPATIENT GLYCEMIC CONTROL: * Hold outpatient oral diabetes medications * Basal insulin * Lantus 0-8 units HS based upon BSG value >180 mg/dL * Bolus insulin * NovoLog per scale ACHS or Q6hrs while NPO * Goal Range: Low 110 mg/dL - High 140 mg/dL * Correction Factor: 25 mg/dL/unit * Nutritional / Prandial insulin per carb ratio of 1 unit per 12 grams CHO consumed PLAN FOR DISCHARGE: * A1c 9.0% 04/2020 * A1c between 8-10% - dual combination therapy typically recommended (metformin + (GLP or SGLT2 - favorable for ASCVD effects)) * Would ensure recent falls at home were not a result of hypoglycemia before considering adding another agent to regimen and would also ensure compliance with home metformin before adding another agent
[2020-06-20] MEDS ORDERED: INSULIN ASPART 100 UNITS/ML 3 ML PEN SC SCH (16:30)
[2020-06-20] MEDS ORDERED: metFORMIN HCL 500 MG TAB PO SCH (17:00)
[2020-06-20] MEDS ORDERED: LANTUS PER UNIT CHARGE SQ SCH (21:00)
[2020-06-20] MEDS: amLODIPine BESYLATE 5 MG TAB PO SCH (22:01)
[2020-06-20] MEDS: POTASSIUM CHLORIDE 10 MEQ TABCR PO SCH (22:02)
[2020-06-21] MEDS: PIPERACILLIN/TAZOBACTAM 3.375 GM in DEXTROSE 5% 100 ML IV SCH ×3 (03:54→20:06)
[2020-06-21] MEDS: LACTATED RINGER'S 1,000 ML IV SCH ×2 (04:57→12:46)
[2020-06-21 06:55] LABS: Basophils # (auto) 0.02 K/uL (0-0.2); Basophils % (auto) 0.4 %; Eosinophils # (auto) 0.23 K/uL (0-0.5); Hematocrit (blood only) 36.4 % (42-52); Hemoglobin 12.1 g/dL (14.0-18.0); Immature Granulocytes # (auto) 0.04 K/uL (0.00-0.02); Immature Granulocytes % (auto) 0.7 %; Lymphocytes # (auto) 1.78 K/uL (1.2-3.4); Lymphocytes % (auto) 31.3 %; Mean Corpuscular Hemoglobin 28.5 pg (25-34); Mean Corpuscular Hgb Conc 33.2 g/dL (32-36); Mean Corpuscular Volume 85.8 fL (80-100); Mean Platelet Volume 9.8 fL (7.4-10.4); Monocytes # (auto) 0.74 K/uL (0.11-0.59); Neutrophils # (auto) 2.88 K/uL (1.4-6.5); Neutrophils % (auto) 50.6 %; Platelet Count 372 K/uL (130-400); RDW Standard Deviation 43.5 fL (36.4-46.3); Red Blood Count 4.24 M/uL (4.7-6.1); White Blood Count 5.69 K/uL (4.8-10.8)
--- NOTE | 2020-06-21 07:24 | Surgery Progress Note ---
Date of Service pt is doing fine, no abdominal pain, no fever, normal WBC, JAYSON 190ml clear June 21, 2020 Assessment & Plan (1) Acute cholecystitis: pt is a 64 year-old male who presents with ER with weakness, U/S study diagnosis: acute cholecystitis, IMP: acute cholecystitis, DM, weakness, I recommend to admit pt to hospital, to do laparoscopic cholecystectomy possible open or cholangiogram tomorrow, D/W benefits, risks and alternatives of the surgery, the risks - infection, bleeding, injury CBD, bowel, MD, DVT, stroke, , pt and his brother understood, they agree with the plan, I answered all questions, consult hospitalist for co-manage this pt. 06/20/2020 1:11PM F/U S/P laparoscopic subtotal cholecystectomy, I update information about OR finding and the procedure pt had, pt understood, I answered all questions, ASA 81 mg po once day, lovenox 40mg SQ once a day, continue iv antibiotic regular diet will F/U 06/21/2020 7:30AM doing better, tolerated diet, please consult vascular surgeon for bilt carotic stenosis continue IV antibiotic keep the JAYSON drainage 1 week, I will remove it next week at my office, he can take a shower, no heavy lifting > 25 LBS for 4 weeks, cipro + flagyl 5 days if pt is discharged (2) Weakness: Admission and Anticipated Discharge Date Admission Date: June 18, 2020 Supervising Physician Co-Signing Physician Notes LISETTE Supervision Note: I did not personally see or examine the patient today, but I verified all pizarro points of LISETTE Baig's assessment and plan with the following exceptions/additions: None Subjective Patient evaluated this morning. Feeling well. Not having abdominal pain, but tender around incisions. Believed JAYSON drained this morning but needs drained now. Walked the halls with therapy this morning. Not passing gas or BM yet. +BS and will add bowel regimen. Discussed CT and carotid and will get vascular consulted for endarterectomy as outpatient and CTA while inpatient for further imaging prior to f/u appointment. Discussed starting lipitor and ASA given findings. Patient agreeable. No fever, chills, chest pain, shortness of breath, nausea or vomiting. Questions/concerns addressed at this time. Review of Systems Constitutional: as per Subjective / HPI Eyes: as per Subjective / HPI Ear, Nose, Mouth, Throat: as per Subjective / HPI Respiratory: as per Subjective / HPI Cardiovascular: as per Subjective / HPI Additional Comments: HTN, hyp erlipidemia Gastrointestinal: as per Subjective / HPI Genitourinary: + as per Subjective / HPI Musculoskeletal: as per Subjective / HPI vit D deficiency Integumentary: as per Subjective / HPI Neurologic: as per Subjective / HPI Psychiatric: as per Subjective / HPI depression Endocrine: as per Subjective / HPI DM Hematologic / Lymphatic: as per Subjective / HPI Allergy / Immunological: as per Subjective / HPI Physical Exam Constitutional: WD/WN, vitals as above well developed and well nourished Eyes: PERRL, conjunctivae normal, anicteric sclerae ENMT: external ear and nose normal, oropharynx normal Neck: trachea midline, no thyromegaly Respiratory: normal respiratory effort, lungs clear to auscultation normal respiratory effort Cardiovascular: RRR, no murmur, no edema Rate/Rhythm: regular rate and regular rhythm Gastrointestinal (Abdomen): normal bowel sounds, soft, nontender, no hepatosplenomegaly Percussion/Palpation: abdomen soft Musculoskeletal: no cyanosis or clubbing, extremities motor strength 5/5 Skin: no rashes, warm and dry Neurologic: awake Psychiatric: Orientation: alert and oriented x 3 Results & Data ([facility]) Vital Signs (Past 12 Hours) Vital Signs Temp Pulse Pulse Resp BP Pulse Ox 06/21/20 07:11 36.7 C 60 16 164/82 H 96 06/20/20 22:52 36.6 C 61 16 162/76 H 97 Laboratory Results Abnormal lab results 06/20/20 06/20/20 06/20/20 Range/Units 07:17 07:17 08:30 RBC 4.18 L (4.7-6.1) M/uL Hgb 12.1 L (14.0-18.0) g/dL Hct 35.5 L (42-52) % Neut # (Auto) 6.90 H (1.4-6.5) K/uL [place] # (Auto) 1.06 H (0.11-0.59) K/uL Immature Gran # (Auto) 0.04 H (0.00-0.02) K/uL Glucose 161 H (70-99) mg/dl POC Glucose 157 H (70-99) mg/dl ALT 86 H (12-78) U/L Total Protein 6.3 L (6.4-8.2) gm/dl Albumin 2.1 L (3.4-5.0) gm/dl Globulin 4.2 H (2.5-4.0) gm/dl Albumin/Globulin Ratio 0.5 L (0.9-2) 06/20/20 06/20/20 06/20/20 Range/Units 12:04 17:04 20:39 RBC (4.7-6.1) M/uL Hgb (14.0-18.0) g/dL Hct (42-52) % Neut # (Auto) (1.4-6.5) K/uL [place] # (Auto) (0.11-0.59) K/uL Immature Gran # (Auto) (0.00-0.02) K/uL Glucose (70-99) mg/dl POC Glucose 135 H 117 H 137 H (70-99) mg/dl ALT (12-78) U/L Total Protein (6.4-8.2) gm/dl Albumin (3.4-5.0) gm/dl Globulin (2.5-4.0) gm/dl Albumin/Globulin Ratio (0.9-2) 06/21/20 06/21/20 Range/Units 06:30 06:30 RBC 4.24 L (4.7-6.1) M/uL Hgb 12.1 L (14.0-18.0) g/dL Hct 36.4 L (42-52) % Neut # (Auto) (1.4-6.5) K/uL [place] # (Auto) 0.74 H (0.11-0.59) K/uL Immature Gran # (Auto) 0.04 H (0.00-0.02) K/uL Glucose 127 H (70-99) mg/dl POC Glucose (70-99) mg/dl ALT (12-78) U/L Total Protein 6.1 L (6.4-8.2) gm/dl Albumin 2.1 L (3.4-5.0) gm/dl Globulin (2.5-4.0) gm/dl Albumin/Globulin Ratio 0.5 L (0.9-2) Diagnostic Findings CT angio neck wo/w con CLINICAL HISTORY: carotid stenosis COMPARISON STUDY: Carotid Doppler ultrasound dated 06/19/2020 FINDINGS: Noncontrast images were obtained through the neck. CT angiography was then performed a dynamic helical fashion during intravenous administration of 120 cc of Optiray 320. MIP images were acquired. A dose reduction technique was utilized according to the principles of ALARA. There is a critical greater than 90% stenosis of the right internal carotid artery origin. Atheromatous changes are also present within the carotid siphon and cavernous carotid with mild to moderate luminal narrowing. There is a critical greater than 90% stenosis of the left internal carotid artery origin. Atheromatous changes are also present within the carotid siphon and cavernous carotid with mild to moderate luminal narrowing There is a 50% diameter stenosis of the left vertebral artery origin. There is no evidence of vertebral artery dissection. IMPRESSION: 1. Bilateral critical stenoses (greater than 90%) of the proximal internal carotid arteries.
[2020-06-21 07:25] LABS: Albumin Globulin Ratio 0.5 (0.9-2); Albumin Level 2.1 gm/dl (3.4-5.0); BUN Creatinine Ratio 10.4 (10-20); Bilirubin,Total 0.4 mg/dl (0.2-1); Creatinine Clr Calc Pharmacy 98.2 ml/min; Est GFR (African American) 111.6; Est GFR (Non-African American) 96.3; Total Protein 6.1 gm/dl (6.4-8.2)
[2020-06-21] MEDS: ASPIRIN 81 MG ECTAB PO SCH (07:36)
[2020-06-21] MEDS: ATORVASTATIN 40 MG TAB PO SCH (07:36)
[2020-06-21] MEDS: CHOLECALCIFEROL 1,000 UNITS 25 MCG TAB PO SCH (07:36)
[2020-06-21] MEDS: lisinopril 20 MG TAB PO SCH (07:36)
[2020-06-21] MEDS: THIAMINE HCL 100 MG TAB PO SCH (07:37)
[2020-06-21] MEDS: POTASSIUM CHLORIDE 10 MEQ TABCR PO SCH ×2 (07:37→20:07)
[2020-06-21] MEDS: POLYETHYLENE (MIRALAX) 17 GM PACK PO SCH (07:37)
[2020-06-21] MEDS: MULTIVITAMIN TAB PO SCH (07:37)
[2020-06-21] MEDS: DOCUSATE SODIUM 100 MG CAP PO SCH ×2 (07:38→20:07)
[2020-06-21] MEDS: ENOXAPARIN INJ 40 MG/0.4 ML SYR SQ SCH (07:39)
--- NOTE | 2020-06-21 08:40 | Pharmacy Report ---
Pharmacy Glycemic Short Note 2 - Date of Service June 21, 2020 - Glycemic Short BSG Results (Last 24 hours): 06/20/20 06/20/20 06/20/20 08:30 12:04 17:04 Glucose POC Glucose 157 H 135 H 117 H 06/20/20 06/21/20 06/21/20 20:39 06:30 08:07 Glucose 127 H POC Glucose 137 H 118 H OUTPATIENT ANTIDIABETIC REGIMEN: * metformin 1 gm bid * A1c of ~9% 04/2020 ASSESSMENT: 06/21 * Patient received total of 9 units of insulin yesterday, all of which were novolog / no basal given * Fasting BSG w/in range at 127 mg/dL - continue to hold basal * May consider restarting home metformin later today if patient continues okay with PO intake 06/20 * 64 year old male presenting with weakness, multiple falls, poor PO intake. 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 CT of abdomen and pelvis sug gesting cholecystitis. Underwent laparoscopic choleycystectomy yesterday, now POD 1 * Type 2 diabetes, last A1c of ~9% in 04/2020 indicating poor control. Had been started on metformin in April alone and encouraged to make dietary changes. Per provider notes, recent decrease in metformin dosing d/t multiple falls at home - will need to confirm this with patient. Unclear if he routinely checks BSG values * POD1, had received dexamethasone in OR therefore BSGs elevated in 200s last evening * Fasting BSG 157 mg/dL, lunch time BSG 135 mg/dL - likely steroids worn off by now and well controlled on SSI only * Plan to continue with same CF/CR for now, will consider adding basal on for this evening based up on BSG value PLAN FOR INPATIENT GLYCEMIC CONTROL: * Hold outpatient oral diabetes medications * Basal insulin * Lantus - hold / not indicated * Bolus insulin * NovoLog per scale ACHS or Q6hrs while NPO * Goal Range: Low 110 mg/dL - High 140 mg/dL * Correction Factor: 25 mg/dL/unit * Nutritional / Prandial insulin per carb ratio of 1 unit per 12 grams CHO consumed PLAN FOR DISCHARGE: * A1c 9.0% 04/2020 * A1c between 8-10% - dual combination therapy typically recommended (metformin + (GLP or SGLT2 - favorable for ASCVD effects)) * Patient met with DM educator 06/20, patient reports compliance with metformin 1gm bid. He reports since diagnosis of diabetes he has adjusted diet and is watching what he eats. PO intake prior to hospitalization had been poorer. Per notes, patient had not been self monitoring BSGs at home. * Would recommend continuation of home metformin on discharge. Would encourage SMBG at least 1x/day, varying time each day. Ideally would recommend checking more frequent 2-3x/day. Would recommend to notify his provider if BSGs consistently >180 or <70 mg/dL . * Would defer adding another agent to metformin regimen to outpatient PCP as patient has made significant dietary changes since diagnosis. Also, due to reports of frequent falls at home unclear if this may be related to lower BSGs/chronic infarcts would favor trending BSGs before adding another agent to regimen.
[2020-06-21] MEDS: INSULIN ASPART 100 UNITS/ML 3 ML PEN SC SCH ×4 (09:24→22:00)
--- NOTE | 2020-06-21 11:30 | Hospitalist Progress Note ---
Date of Service June 21, 2020 Assessment & Plan (1) Acute cholecystitis: pt is a 64 year-old male who presents with ER with weakness, chills, general malaise Found to have acute christal on imaging General surgery admitted, hospitalist consulted for medical management Hospitalist service resumed primary service, general surgery as senior staff consultant after discussion with Dr. Bland * POD #2 s/p subtotal lap christal for GANGRENOUS GALLBLADDER with Dr. Bland on 06/19. * EBL 20cc. * h/h dropped to 12.1/35.5 -- acute blood loss anemia following surgery as well as dilutional from IVF. * h/h stable on repeat * JAYSON with 180cc on 06/20 -- 70cc so far today recorded. Plans to keep in and remove at outpatient follow up in 1 week * Pain control, antiemetics, PT/OT, DVT prophylaxis with Lovenox 40mg SQ daily * Bowel regimen added -- + BM * Continue Zosyn (on day 3 of therapy) -- per surgery, plans for additional 5 days of therapy with Cipro/Flagyl from today. Will need 4 additional days if discharged tomorrow * Blood cultures NGTD * Urine culture no growth * Discontinue IVF today See below regarding recent falls/weakness (2) Weakness: * Recently with multiple falls but no reported LOC * CT Head with old infarcts -- patient states "history of mini strokes" but not on daily ASA 81mg --> discussed and started today along with lipitor 40mg daily * ECHO without valvular dysfunction or reduced EF/wma * Ordered carotid dopplers --> CRITICAL BILATERAL STENOSIS * Dr. Mancia consulted --> ordered CTA which confirmed >90% bilateral stenosis * --> Plans for outpatient follow up and planned endarterectomy for treatment * Neurology consulted -- would get better control of chronic conditionals and agree with ASA/lipitor (3) Carotid stenosis, bilateral: * CRITICAL -- BILATERAL >90% stenosis * See above under weakness -- likely cause of repeated falls * ASA 81mg , lipitor 40mg initiated and would continue at discharge * Vascular surgery consulted * Outpatient intervention planned (4) Chronic arterial ischemic stroke: (5) Hypertension: * Chronic. Controlled currently 131/71 * Continue lisinopril 20mg, amlodipine 5mg daily * Continue to monitor -- if needed and BPs remain elevated can consider increasing amlodipine to 10mg daily at discharge (6) Hyperlipidemia: * Most recent lipid panel wnl, however given above and pt with DM and strokes on CVA, initiated lipitor . * Will need f/u with PCP (7) Diabetes type 2, uncontrolled: * A1c 9.0 -- to be on metformin 1,000 BID but was reduced to 500mg daily due to thoughts it was causing him to not feel well (he never decreased this dose yet though) * ISS while inpatient * Pharmacy on consulted --> possible resume metformin later today * Would resume 1g BID at discharge and encourage diet/exercise and f/u with PCP for repeat A1c in 3 months for possible initiation of additional agents * Continue to monitor (8) Falling: * due to above * PT/OT with recs for return home if goals met with brother --> of note, patient actually LIVES ALONE in his brother's house and his brother lives in the same town nearby in another house * Not felt safe for return home at this time until carotids addressed d/t falls * CM following and ref for [facility] made. No auth needed as he is medicare. Likely not until tomorrow (9) DVT prophylaxis: * Lovenox 40mg SQ daily while inpatient ETOH Use * Reported history of but states he quite. No s/sx withdrawal. * Started on multivitamin and thiamine replacement (B1 level drawn prior to initiation of thiamine therapy). would continue at discharge until labs results * Continue to monitor Dispo: continued inpatient stay Thank you for allowing hospitalist to participate in the care of Mr. Bautista. Hospitalist service will continue to follow along. Admission and Anticipated Discharge Date Admission Date: June 18, 2020 Supervising Physician Co-Signing Physician Notes LISETTE Supervision Note: I did not personally see or examine the patient today, but I verified all pizarro points of LISETTE Baig's assessment and plan with the following exceptions/additions: None Subjective Patient evaluated this afternoon. Feeling well. Having difficulty getting the ornelas is right volume up on the tv. Has been walking around the room but still has some issues with gait. No fever or chills. Not having any pain. Eating/drinking without issue. Had a bowel movement last night. No chest pain, shortness of breath, abdominal pain, nausea, vomiting or dysuria. Discussed plan for follow up with vascular at discharge, which will be easier coordinated from rehab and will already be established with [facility]. Patient stated initially he thought told him it was a permanent placement. Not overly keen on going to rehab, but he is now agreeable to short inpatient stay. Discussed continuing medications given strokes on CT and will continue at discharge. Discussed significant risk for stroke without intervention and medications. He demonstrates understanding. Does need frequent re-orientation as he is distracted easily, and states his brother will have to help him with medication at discharge. Plans for continuing JAYSON for [address] Bland remove at follow up appointment and will continue antibiotics with cipro/flagyl for additional 5 days. Confirmed length of antibiotics with general surgery. Review of Systems Review of Systems: All systems reviewed & are unremarkable except as noted in HPI & below Physical Exam Constitutional: WD/WN, vitals as above cooperative and comfortable; no acute distress Eyes: + anicteric sclerae and PERRL ENMT: Ears: no hearing impairment Neck: trachea midline, no thyromegaly Respiratory: normal respiratory effort, lungs clear to auscultation Cardiovascular: Rate/Rhythm: regular rate and regular rhythm Vessels: + carotid bruit; no JVD Extremities: no edema Gastrointestinal (Abdomen): Inspection/Auscultation: normal bowel sounds Percussion/Palpation: abdomen soft; abdomen nontender (even around incisions/JAYSON drain), no guarding and abdomen not rigid JAYSON with approx 60cc bloody/serous drainage noted abdominal incisions c/d/i no evidence of drainage/erythema Musculoskeletal: no cyanosis or clubbing, extremities motor strength 5/5 Skin: warm , dry Neurologic: PERRL, EOMI, accommodation nl, no face palsy, no dysarthria decreased sensation to light touch Psychiatric: Orientation: alert, oriented to person, oriented to place, oriented to time and cooperative Lymphatic: no cervical or axillary lymphadenopathy Results & Data Results & Data ([facility]) Vital Signs (Past 12 Hours) Vital Signs Temp Pulse Pulse Resp BP Pulse Ox 06/21/20 15:31 36.8 C 55 L 16 131/71 98 06/21/20 07:11 36.7 C 60 16 164/82 H 96 06/20/20 22:52 36.6 C 61 16 162/76 H 97 Intake and Output 06/21/20 06/21/20 06/21/20 06:59 14:59 22:59 Intake Total 1026.667 / 3230.334 896.667 / 111 Output Total 61 / 1291 70 / 70 Balance 965.667 / 1939.334 826.667 / 1679.312 2943 / Intake: IV 1026.667 / 2955.334 896.667 / 111 Lr 1,000 ml @ 100 mls/hr IV . 911.667 / 2610.334 781.667 / 2952.446 6123 / 178.667 Q10H BOBBY Rx#:[id number] Zosyn 3.375 gm In D5 100 ml @ 115 / 345 115 / 230 115 / 230 28.75 mls/hr IV Q8H BOBBY Rx#: [id number] Output: Drain Output 60 / 190 70 / 70 Abdomen JAYSON #1 60 / 190 70 / 70 # Bowel Movements Other: # Unmeasured Voids 1 Laboratory Results 06/21/20 06/21/20 06/21/20 Range/Units 12:08 08:07 06:30 WBC (4.8-10.8) K/uL RBC (4.7-6.1) M/uL Hgb (14.0-18.0) g/dL Hct (42-52) % MCV (80-100) fL MCH (25-34) pg MCHC (32-36) g/dL RDW Std Deviation (36.4-46.3) fL RDW Coeff of James (11.5-14.5) % Plt Count (130-400) K/uL MPV (7.4-10.4) fL Immature Gran % (Auto) % Neut % (Auto) % Lymph % (Auto) % Wolfe % (Auto) % Eos % (Auto) % Baso % (Auto) % Neut # (Auto) (1.4-6.5) K/uL Lymph # (Auto) (1.2-3.4) K/uL Wolfe # (Auto) (0.11-0.59) K/uL Eos # (Auto) (0-0.5) K/uL Baso # (Auto) (0-0.2) K/uL Immature Gran # (Auto) (0.00-0.02) K/uL Sodium 137 (136-145) mmol/L Potassium 4.0 (3.5-5.1) mmol/L Chloride 103 (98-107) mmol/L Carbon Dioxide 29 (21-32) mmol/L Anion Gap 5.0 (3-11) BUN 8 D (7-18) mg/dl Creatinine 0.75 (0.6-1.4) mg/dl Est Cr Clr Drug Dosing 98.2 ml/min Est GFR ( Amer) 111.6 Est GFR (Non-Af Amer) 96.3 BUN/Creatinine Ratio 10.4 (10-20) Glucose 127 H (70-99) mg/dl POC Glucose 137 H 118 H (70-99) mg/dl Calcium 9.0 (8.5-10.1) mg/dl Total Bilirubin 0.4 (0.2-1) mg/dl AST 22 (15-37) U/L ALT 67 (12-78) U/L Alkaline Phosphatase 73 (45-117) U/L Total Protein 6.1 L (6.4-8.2) gm/dl Albumin 2.1 L (3.4-5.0) gm/dl Globulin 4.0 (2.5-4.0) gm/dl Albumin/Globulin Ratio 0.5 L (0.9-2) Vitamin B1 06/21/20 06/21/20 06/20/20 Range/Units 06:30 06:30 20:39 WBC 5.69 (4.8-10.8) K/uL RBC 4.24 L (4.7-6.1) M/uL Hgb 12.1 L (14.0-18.0) g/dL Hct 36.4 L (42-52) % MCV 85.8 (80-100) fL MCH 28.5 (25-34) pg MCHC 33.2 (32-36) g/dL RDW Std Deviation 43.5 (36.4-46.3) fL RDW Coeff of James 14.0 (11.5-14.5) % Plt Count 372 (130-400) K/uL MPV 9.8 (7.4-10.4) fL Immature Gran % (Auto) 0.7 % Neut % (Auto) 50.6 % Lymph % (Auto) 31.3 % Wolfe % (Auto) 13.0 % Eos % (Auto) 4.0 % Baso % (Auto) 0.4 % Neut # (Auto) 2.88 (1.4-6.5) K/uL Lymph # (Auto) 1.78 (1.2-3.4) K/uL Wolfe # (Auto) 0.74 H (0.11-0.59) K/uL Eos # (Auto) 0.23 (0-0.5) K/uL Baso # (Auto) 0.02 (0-0.2) K/uL Immature Gran # (Auto) 0.04 H (0.00-0.02) K/uL Sodium (136-145) mmol/L Potassium (3.5-5.1) mmol/L Chloride (98-107) mmol/L Carbon Dioxide (21-32) mmol/L Anion Gap (3-11) BUN (7-18) mg/dl Creatinine (0.6-1.4) mg/dl Est Cr Clr Drug Dosing ml/min Est GFR ( Amer) Est GFR (Non-Af Amer) BUN/Creatinine Ratio (10-20) Glucose (70-99) mg/dl POC Glucose 137 H (70-99) mg/dl Calcium (8.5-10.1) mg/dl Total Bilirubin (0.2-1) mg/dl AST (15-37) U/L ALT (12-78) U/L Alkaline Phosphatase (45-117) U/L Total Protein (6.4-8.2) gm/dl Albumin (3.4-5.0) gm/dl Globulin (2.5-4.0) gm/dl Albumin/Globulin Ratio (0.9-2) Vitamin B1 Pending 06/20/20 Range/Units 17:04 WBC (4.8-10.8) K/uL RBC (4.7-6.1) M/uL Hgb (14.0-18.0) g/dL Hct (42-52) % MCV (80-100) fL MCH (25-34) pg MCHC (32-36) g/dL RDW Std Deviation (36.4-46.3) fL RDW Coeff of James (11.5-14.5) % Plt Count (130-400) K/uL MPV (7.4-10.4) fL Immature Gran % (Auto) % Neut % (Auto) % Lymph % (Auto) % Wolfe % (Auto) % Eos % (Auto) % Baso % (Auto) % Neut # (Auto) (1.4-6.5) K/uL Lymph # (Auto) (1.2-3.4) K/uL Wolfe # (Auto) (0.11-0.59) K/uL Eos # (Auto) (0-0.5) K/uL Baso # (Auto) (0-0.2) K/uL Immature Gran # (Auto) (0.00-0.02) K/uL Sodium (136-145) mmol/L Potassium (3.5-5.1) mmol/L Chloride (98-107) mmol/L Carbon Dioxide (21-32) mmol/L Anion Gap (3-11) BUN (7-18) mg/dl Creatinine (0.6-1.4) mg/dl Est Cr Clr Drug Dosing ml/min Est GFR ( Amer) Est GFR (Non-Af Amer) BUN/Creatinine Ratio (10-20) Glucose (70-99) mg/dl POC Glucose 117 H (70-99) mg/dl Calcium (8.5-10.1) mg/dl Total Bilirubin (0.2-1) mg/dl AST (15-37) U/L ALT (12-78) U/L Alkaline Phosphatase (45-117) U/L Total Protein (6.4-8.2) gm/dl Albumin (3.4-5.0) gm/dl Globulin (2.5-4.0) gm/dl Albumin/Globulin Ratio (0.9-2) Vitamin B1 PG Care Time/CCT Total # of Minutes Spent Total Time Spent with Patient: Total time spent is greater than 50% in coordination of care (as documented) at patient's floor/unit and/or counseling patient: Coding Level of Care Code 22956 Subseq Hosp Care Lvl 2 Diagnoses Acute cholecystitis K81.0 Weakness R53.1 Carotid stenosis, bilateral I65.23 Chronic arterial ischemic stroke I69.30 Hypertension I10 Hyperlipidemia E78.5 Diabetes type 2, uncontrolled E11.65 Falling R29.6 DVT prophylaxis Z29.9
[2020-06-21] MEDS: metFORMIN HCL 500 MG TAB PO SCH (17:40)
[2020-06-21] MEDS ORDERED: amLODIPine BESYLATE 5 MG TAB PO SCH ×2 (21:00)
[2020-06-22] MEDS: PIPERACILLIN/TAZOBACTAM 3.375 GM in DEXTROSE 5% 100 ML IV SCH (05:06)
[2020-06-22 07:18] LABS: Hematocrit (blood only) 37.3 % (42-52); Hemoglobin 12.2 g/dL (14.0-18.0); Mean Corpuscular Hemoglobin 28.3 pg (25-34); Mean Corpuscular Hgb Conc 32.7 g/dL (32-36); Mean Corpuscular Volume 86.5 fL (80-100); Mean Platelet Volume 9.6 fL (7.4-10.4); Platelet Count 380 K/uL (130-400); RDW Coefficient of Variation 13.8 % (11.5-14.5); RDW Standard Deviation 43.8 fL (36.4-46.3); Red Blood Count 4.31 M/uL (4.7-6.1); White Blood Count 5.95 K/uL (4.8-10.8)
[2020-06-22] MEDS: POTASSIUM CHLORIDE 10 MEQ TABCR PO SCH (07:37)
[2020-06-22] MEDS: MULTIVITAMIN TAB PO SCH (07:38)
[2020-06-22] MEDS: ATORVASTATIN 40 MG TAB PO SCH (07:38)
[2020-06-22] MEDS: DOCUSATE SODIUM 100 MG CAP PO SCH (07:38)
[2020-06-22] MEDS: metFORMIN HCL 500 MG TAB PO SCH (07:38)
[2020-06-22] MEDS: ENOXAPARIN INJ 40 MG/0.4 ML SYR SQ SCH (07:39)
[2020-06-22] MEDS: POLYETHYLENE (MIRALAX) 17 GM PACK PO SCH (07:39)
[2020-06-22] MEDS: ASPIRIN 81 MG ECTAB PO SCH (07:41)
[2020-06-22] MEDS: THIAMINE HCL 100 MG TAB PO SCH (07:43)
[2020-06-22] MEDS: lisinopril 20 MG TAB PO SCH (07:43)
[2020-06-22] MEDS: CHOLECALCIFEROL 1,000 UNITS 25 MCG TAB PO SCH (07:43)
[2020-06-22 07:56] LABS: Albumin Level 2.1 gm/dl (3.4-5.0); BUN Creatinine Ratio 10.1 (10-20); Bilirubin Direct 0.1 mg/dl (0-0.2); Calcium 8.8 mg/dl (8.5-10.1); Creatinine Clr Calc Pharmacy 85.6 ml/min; Est GFR (African American) 105.5
[2020-06-22 07:59] LABS: Bilirubin,Total 0.4 mg/dl (0.2-1); Total Protein 5.9 gm/dl (6.4-8.2)
[2020-06-22] MEDS: INSULIN ASPART 100 UNITS/ML 3 ML PEN SC SCH ×2 (09:37→13:02)
--- NOTE | 2020-06-22 10:40 | Discharge Summary ---
Date of Service June 22, 2020 Admission HPI Per Admitting Provider This is a 64-year-old male with past medical history significant for diabetes, hypertension, psoriasis who was in the hospital for workup for his frequent falls at home and he had CT of the head, CT of the chest, CT abdomen and pelvis and workup showed acute cholecystitis and Surgery was consulted by the ER. A gallbladder ultrasound also was consistent with cholecystitis. Surgery admitted the patient, started on antibiotics and plan for laparoscopic cholecystectomy tomorrow. We are consulted for medical management. Currently, patient is resting comfortably. Denies any abdominal pain, no nausea, no fever, no chills, no chest pain, no shortness of breath, no cough, no headache, no blurred vision, no earache, no runny nose, no sore throat. He says normal bowel and bladder movements. Admission Exam Per Admitting Provider GENERAL: The patient is of moderate build, not in acute distress. VITAL SIGNS: Temperature 37.2, pulse 79, respiratory rate 16, blood pressure 144/67, oxygen 97% room air. HEENT: Head atraumatic. No facial droop seen. NECK: No neck masses seen. CARDIOVASCULAR: S1, S2 heard, regular rate and rhythm, no murmur, no gallop. RESPIRATORY SYSTEM: Normal AP diameter. No accessory muscle use. No wheezing, no crackles. ABDOMEN: Soft, bowel sounds present, nontender. No distention, no guarding, no rigidity. CENTRAL NERVOUS SYSTEM: Cranial nerves II through XII grossly intact, nonfocal. EXTREMITIES: No edema, no erythema. Principal Diagnosis Acute Cholecystitis Falls, severe bilateral carotid artery stenosis History of bilateral CVAs Discharge Exam Constitutional WD/WN, vitals as above cooperative and comfortable; no acute distress Eyes + anicteric sclerae and PERRL ENMT Ears: no hearing impairment Neck trachea midline, no thyromegaly Respiratory normal respiratory effort, lungs clear to auscultation Cardiovascular Rate/Rhythm: regular rate and regular rhythm Vessels: + carotid bruit; no JVD Extremities: no edema Gastrointestinal (Abdomen) Inspection/Auscultation: normal bowel sounds Percussion/Palpation: abdomen soft; abdomen nontender (even around incisions/AJYSON drain), no guarding and abdomen not rigid surgical incisions c/d/i JAYSON with 50cc bloody drainage Musculoskeletal no cyanosis or clubbing, extremities motor strength 5/5 Skin warm, dry Neurologic PERRL, EOMI, accommodation nl, no face palsy, no dysarthria Psychiatric Orientation: alert, oriented to person, oriented to place, oriented to time and cooperative Genitourinary NO SETH Lymphatic no cervical or axillary lymphadenopathy Discharge Data Allergies Allergy/AdvReac Type Severity Reaction Status Date / Time No Known Allergies Allergy Verified 06/18/20 17:36 Consultations 06/18/20 17:31 Consult General Surgery Stat 06/18/20 17:53 ED Decision to Admit Stat 06/18/20 22:03 Consult Hospitalist Stat 06/19/20 09:36 Consult Neurology Routine 06/20/20 08:02 Consult Vascular Surgery Routine Procedures Performed Operation Date: 06/19/20 07:50 Actual Procedures p Laparoscopic Subtotal Cholecystectomy - Patt Bland MD Ordered Studies 06/18/20 14:31 US gallbladder Stat CXR 06/19/20 US carotid doppler BI Routine ECHO 06/20/20 11:44 CT angio neck wo/w con Routine Hospital Course (1) Acute cholecystitis: pt is a 64 year-old male who presents with ER with weakness, chills, general malaise Found to have acute christal on CTA/P General surgery consulted S/P subtotal lap christal for GANGRENOUS GALLBLADDER with Dr. Bland on 06/19 Given IV Zosyn while inpatient with transition to Cipro/Flagyl to complete 7 day course per general surgery recommendations JAYSON drain to remain in place and have removed in office at follow up next week Blood cultures negative to date h/h stable See below regarding recent falls/weakness (2) Weakness: Recently with multiple falls but no reported LOC CT Head with old infarcts -- patient states "history of mini strokes" but not on daily ASA 81mg --> discussed and started [id number] daily along with lipitor 40mg ECHO without valvular dysfunction or reduced EF/wma US carotid dopplers with CRITICAL BILATERAL STENOSIS Dr. Mancia consulted --> ordered CTA which confirmed >90% bilateral stenosis * --> Plans for outpatient follow up and planned endarterectomy for treatment Neurology consulted -- would get better control of chronic conditionals and agree with ASA/lipitor, and also sent patient on insulin given his A1c 9 on metformin alone to allow him to get used to for possible continued use after following surgery as well. Utilizing sliding scale insulin as he did have dietary changes once diagnosed over the past several months Also should have a 30-day holter monitor at follow up to see about any possible underlying arrhythmias (3) Carotid stenosis, bilateral: CRITICAL -- BILATERAL >90% stenosis likely contributing to recurrent falls Vascular consulted Planning outpatient follow up in next 1-2 weeks for planned endarterectomy (4) Chronic arterial ischemic stroke: (5) Hypertension: Chronic. Remained slightly elevated during admission without any reported pain Lisinopril was increased to 40mg daily and continued amlodipine 5mg daily at discharge Should have repeat BMP in next week to ensure stability (6) Hyperlipidemia: Most recent lipid panel wnl, however given above and pt with DM and strokes on CVA, initiated lipitor which was continued at discharge Will need f/u with PCP (7) Diabetes type 2, uncontrolled: A1c 9.0 -- to continue metformin 1,000mg BID at discharge Placed on insulin sliding scale at discharge to help gain better control BSGs acceptable while inpatient Follow up with PCP (8) Falling: due to above PT/OT with recs for return home if goals met with brother --> of note, patient actually LIVES ALONE in his brother's house and his brother lives in the same town nearby in another house Not felt safe for return home at this time until carotids addressed d/t falls CM following and ref for [facility] made. No auth needed as he is medicare. Discharged to [facility] (9) DVT prophylaxis: * Lovenox 40mg SQ daily while inpatient ETOH Use * Reported history of but states he quite. No s/sx withdrawal. * Started on multivitamin and thiamine replacement (B1 level drawn prior to initiation of thiamine therapy). to continue at discharge * B1 pending at time of discharge Disposition: discharged to [facility] for short-term rehab. Will need close follow up outpatient and will have eval with Vascular for planned intervention in the next weeks Total Time Total Time Spent Total Time Spent (In Minutes): 70 Discharge Plan Discharge Items Patient Disposition: Transfer Inpatient Rehab Fac Reason For Visit: VOMITING, LOWER ABDOMINAL PAIN Discharge Diagnosis: Acute gangrenous cholecystitis Condition on Discharge: Fair Goals: You have been hospitalized for an urgent problem which required surgery. During your stay at [facility], we have made an effort to correct the problem that brought you to the hospital while keeping you as comfortable as possible. Surgery and medications were used to bring your condition under control and your discharge instructions will include directions for any medications you should take after leaving the hospital. Please make sure to follow the advice of your surgeon regarding follow up with the surgeon and with your primary care provider. Activity: Per Instructions section Non-emergency contact: Primary Care Provider and Surgeon Call non-emergency contact if: you have any medication questions, your pain is not controlled, your pain is worsening, your pain is unusual for you, you have a fever, your temperature is above 101, your wound has increased redness, your wound has increased drainage and your wound pain has increased Follow-up/Referrals: Mathew Gonzalez CRNP [Primary Care Provider] - Chris Mancia MD [Physician] - (1-2 weeks) Patt Bland MD [Physician] - (1week) Diet: Carb Consistent or DM2 and Heart Healthy Addtl Attending Provider Instructions: You have been hospitalized and found to have a gangrenous gallbladder, which was removed by general surgery. You have a JAYSON drain that will remain in place for another week and will be removed at follow up appointment with Dr. Bland. You will continue antibiotics for another 4 days with Ciprofloxacin and Metronidazole. Please completed full course as prescribed. Please make sure not to drink any alcohol while on these medications as they can cause vomiting. While in the hospital, discussed regarding your falls warranted a work-up which included imaging of your neck arteries, CT of your head/neck which revealed critical stenosis as well as evidence of prior strokes. Neurology was consulted and you should have maximized treatment of your other medical comorbidities and Vascular surgery was consulted for carotid stenosis. You are being sent to rehab with sliding scale insulin to get better control of your diabetes in anticipation for upcoming intervention to your neck. Sliding scale insulin as follows: Goal Range 140-180 Correction Factor 30 Carb Ratio 1:12 Please take 1 unit if blood sugar for every 30 points above goal. Please keep record of your sugars for follow up with Kenrick Gonzalez at follow up appointment for further management. Given recent surgery, you will need to follow up with Dr. Mancia for carotid endarterectomy follow up as an outpatient in two weeks. You have been started on daily baby aspirin 81mg and Lipitor (atorvastatin) 40mg daily for prevention of strokes. Your lisinopril has been increased to 40mg daily. You will need to have follow up with a Holter monitor to ensure you have no possible underlying arrhythmias that can lead to stroke as well. You will need to follow up with your PCP in the next week to monitor your progress after discharge from the hospital. Please return to the emergency department with any worsening pain, fever, chills, or for any other symptoms that are concerning for you. Addtl Marketing Coordinator Provider Instructions: General Surgery Discharge Instructions: - No heavy lifting over 25 pounds for 4 weeks - No strenuous activity for 4 weeks - No submerging incisions underwater for 2 weeks (no bathing, swimming, or hot tubs) - No driving while taking narcotic pain medication or until you are pain free - You may shower once drain is removed. May wash hair and sponge bath around drain and incisions until drain removed. Once drain removed my shower. - Leave steri strips on incisions for 7 days and then remove. They may fall of on their own that is okay. - Record drain output daily (how much and the color) Bring record with you to office. - You may take extra strength Tylenol or Ibuprofen as needed for mild pain -650 mg of Tylenol every 6 hours as needed - 600 mg of Ibuprofen every 6 hours as needed - Take narcotic pain medication only for moderate to severe pain - You may be discharged with oral antibiotics, take as prescribed and the entire course - Follow-up in surgical office in 1 week. Please call office at [phone] to make an appointment for follow-up and drain removal. Pending Studies at Discharge: Yes Stand-Alone Forms: My [facility] Skilled Items Patient informed of condition?: Yes DNR: No Discharge Level of Care: Acute rehab Communicable Disease: No Discharge Prognosis: Stable Lines: None Urinary Catheter: No Medications and DC Order Prescriptions: New multivitamin [Daily-Malorie] Tablet 1 tab PO QAM 30 Days Qty: 30 RF: 0 atorvastatin 40 mg Tablet 40 mg PO HS 30 Days Qty: 30 RF: 0 thiamine HCl (vitamin B1) [Vitamin B-1] 100 mg Tablet 100 mg PO QAM 30 Days Qty: 30 RF: 0 cholecalciferol (vitamin D3) 25 mcg (1,000 unit) Capsule 2,000 unit PO QAM 30 Days Qty: 30 RF: 0 aspirin 81 mg Tablet,Delayed Release (Dr/Ec) 81 mg PO QAM 30 Days Qty: 30 RF: 0 insulin aspart U-100 100 unit/mL (3 mL) insulin pen 1 unit subcut ACHS Qty: 3 RF: 0 Continued amlodipine 5 mg tablet 5 mg PO HS Qty: 30 RF: 3 metformin 1,000 mg tablet 1,000 mg PO BIDM RF: 0 betamethasone dipropionate 0.05 % cream 1 applic topical BID PRN (Reason: Psoriasis) RF: 0 Changed lisinopril 20 mg tablet 40 mg PO QAM Qty: 0 RF: 0 Discharge Orders: Discharge Order (Routine); Ordered 06/22/20 Ordered By: Kareen Marquez/Other Patient Handouts: High Blood Sugar (Hyperglycemia), Hypoglycemia (Low Blood Sugar), Managing Type 2 Diabetes, Exercise to Manage Your Blood Sugar, 5 Steps for Eating Healthier, Managing Diabetes: The A1C Test, Understand ing Type 2 Diabetes Admission Data Admit Date/Time: 06/18/20 20:35 Attending Provider: Thelma Reddy Admit Provider: Patt Bland Primary Care Provider: Mtahew Gonzalez Other Providers: Thelma Reddy ; Patt Bland ; Tierra Velez ; Nafisa Sahu ; Mike Barraza ; Errol Sun ; Simi Virgen ; Elizabeth Ahn ; Kareen Cantu ; Talita Meier ; Leslie Valles ; Valeriy Hernandez ; Reyes Luke ; Stanton Fatima ; Franca Rojas ; Saundra Smith ; Sundar Ventura ; Adolph Lyon ; Marcia Celeste ; Rosario Dodson ; Adolph Mina ; Falguni Abel ; Salima Hull ; Manolo Lockett ; Rhonda Bright I. ; Ney Denton ; Micah Cartagena ; Chris Mancia ; [facility] Other Interventions: Discharge Summary Assessment (RN) Last Done: 06/22/20 14:35 Supervising Physician Co-Signing Physician Notes PA Supervision Note: I personally saw and examined the patient. I verified all pizarro points and agree with LISETTE Baig with the following exceptions and/or additions: Pt doing well, minimal abd pain. No headaches Is making urine, eating. VSS NAD, AAOx3 RRR no mgr CTAB no wcr Abd with incisions healing, JAYSON drain in palce, min TTP around incision sites, +BS, soft Ext no edema 64 yo male here with acute gangrenous cholecystitis, incidentally noted to have severe vascular issues and old CVAs on workup for multiple falls. Plan outlined as above Plan for rehab placement now while recovering from acute christal and then needs bilateral CEAs with Vascular when arranged. Coding Level of Care Code D/C Day Management >30 mins Diagnoses Acute cholecystitis K81.0 Weakness R53.1 Carotid stenosis, bilateral I65.23 Chronic arterial ischemic stroke I69.30 Hypertension I10 Hyperlipidemia E78.5 Diabetes type 2, uncontrolled E11.65 Falling R29.6 DVT prophylaxis Z29.9
--- NOTE | 2020-06-22 12:11 | Pharmacy Report ---
Pharmacy Glycemic Sign Off Nt - Date of Service June 22, 2020 - Assessment & Plan ASSESSMENT: * Pharmacy was consulted Kareen Baig for glycemic control and to write orders per [facility] inpatient glycemic control protocol. * Major changes made by pharmacy to antidiabetic regimen include: * add SSI * Patient has been receiving/requiring ~10 units of insulin / day * Do not anticipate further changes in patient status that would quickly deteriorate glycemic control (i.e. patient to be NPO for upcoming procedure, steroids tapering, starting tube feedings, etc). * Please see recommendations for outpatient antidiabetic regimen below. PLAN FOR INPATIENT GLYCEMIC CONTROL: No changes needed to current regimen. * No basal insulin indicated * Continue home metformin 1 gm bid * Continue NovoLog per scale ACHS/Q6hrs while NPO * Goal range = 110-140 mg/dl * CF = 25 mg/dl/unit * CR = 1 unit for ever -- g CHO consumed * Pharmacy is signing off of glycemic consult and will no longer be making adjustments to inpatient regimen. Please feel free to re-consult if needed. Thank you. DISCHARGE RECOMMENDATIONS: * A1c 9.0% 04/2020 * A1c between 8-10% - dual combination therapy typically recommended (metformin + (GLP or SGLT2 - favorable for ASCVD effects)) * Patient met with DM educator 06/20, patient reports compliance with metformin 1gm bid. He reports since diagnosis of diabetes he has adjusted diet and is watching what he eats. PO intake prior to hospitalization had been poorer. Per notes, patient had not been self monitoring BSGs at home. * Would recommend continuation of home metformin on discharge. Would encourage SMBG at least 1x/day, varying time each day. Ideally would recommend checking more frequent 2-3x/day. Would recommend to notify his provider if BSGs co nsistently >180 or <70 mg/dL . * Would defer adding another agent to metformin regimen to outpatient PCP as patient has made significant dietary changes since diagnosis. Also, due to reports of frequent falls at home unclear if this may be related to lower BSGs/chronic infarcts would favor trending BSGs before adding another agent to regimen.
== END 2020-06-22 14:45 | DRG 417 ==
LOC: ED 13:31 → 3W 20:35 → SUATTDRO 20:35 → 3W 21:31

== ENCOUNTER 2020-10-17 08:08 | Inpatient (IN) ==
--- NOTE | 2020-10-15 12:59 | Anesthesiology Consultation ---
Date of Service October 15, 2020 Assessment & Plan (1) Encounter for pre-operative examination: Chart Review Chart Review: Acceptable Risk for Surgery (pending preop Covid testing results ) and Patient NOT seen in Pre Admission Testing - Check BSG AM DOS Per nursing assessment 10/10/2020, patient denies any recent travel. No known Covid infection in the past 90 days. No known Covid positive contacts or Covid related symptoms. Covid test 10/15/20= results pending Last seen by PCP 09/06/2020 = carotid stenosis bilateralstatus post right CEA. Echo without valvular dysfunction or reduced EF/wall motion abnormality. Surgical site stable. Working to have left CEA completed. Hypertensionat goal. Diabetesstable. Continue to moderate PSG. Continue low sugar and carb diet. Continue Metformin. Anemianot at goal. Blood work drawn as ordered. Cerebral vascular diseaseCT of head with old infarcts. Continue aspirin and statin. Right CEA 07/31/2020 = done under GA with grade 1 view with MAC #3. ETT #7.5. Left radial arterial line was placed preoperatively. Per anesthesia post procedure note 07/31/2020 = "The patient tolerated the procedure well. Due to bilateral 90% carotid stenosis, his BP was maintained intraoperatively with phenylephrine. In the PACU, he is awake and comfortable. He is able to move all four extremities on command and stick his tongue out midline on command. His SBP dropped into the 90s. Other vital signs have been stable. He was given a bolus of IV fluid and given phenylephrine. Dr. Mancia would like his SBP to be greater than 120. The patient will be transferred to ICU where he may be started on a phenylephrine gtt. Sign out was given to Dr. Ortiz and the ICU team." History Surgery Operation Date: 10/17/20 10:50 Proposed Procedures p Left Carotid Endarterectomy - Chris Mancia MD Height/Weight Height: 5 ft 9 in Weight: 81.647 kg Allergies Allergy/AdvReac Type Severity Reaction Status Date / Time No Known Allergies Allergy Verified 10/10/20 10:57 Medications Home Medications Medication Instructions Recorded Confirmed Last Taken betamethasone dipropionate 1 applic TOPICAL BID PRN 06/18/20 10/10/20 Unknown acetaminophen [Tylenol] 650 mg PO QID PRN 07/12/20 10/10/20 Unknown amlodipine 5 mg tablet 5 mg PO HS #30 tab 07/20/20 10/10/20 07/30/20 20:00 diabetic supplies, miscellan. #1 ea 07/30/20 09/06/20 Unknown diabetic supplies, miscellan. #1 ea 07/30/20 09/06/20 Unknown lisinopril 20 mg PO QAM 07/31/20 10/10/20 07/30/20 08:00 multivitamin with minerals 1 tab PO DAILY 07/31/20 10/10/20 07/30/20 08:00 aspirin 81 mg tablet,delayed 81 mg PO QAM 08/06/20 10/10/20 Unknown release blood sugar diagnostic #100 ea 08/15/20 09/06/20 Unknown blood-glucose meter #1 ea 08/15/20 09/06/20 Unknown metformin 1,000 mg tablet 1,000 mg PO BIDM #180 tab 08/28/20 10/10/20 Unknown atorvastatin 40 mg PO QAM 10/10/20 10/10/20 Unknown Past Medical History Medical History Carotid stenosis, bilateral S/p right CEA July 2020 Chronic arterial ischemic stroke Pt admitted 06/18/20= CT scan of head showed- "multifocal chronic cerebral infarcts involving the right parietal and bilateral frontal lobes as well as both caudate heads and thalami." Neuro consultation 06/20/20= "will likely need carotid endarterectomy" Cognitive changes Depression Diabetes type 2, uncontrolled (05/08/20) Hgb A1C noted at 9%-04/2020 Random glucose in July and September 2020 in 110s Frozen shoulder syndrome LEFT Hyperlipidemia Hypertension Memory deficit PER BROTHER ROBINA Psoriasis Past Family History Family History Mother Myocardial infarction Family history of diabetes mellitus Denies family history of Ovarian cancer Prostate cancer Breast cancer Colorectal cancer Past Surgical History Surgical History History of cholecystectomy 06/19/2020 [facility] for acute cholecystitis. MAC #3, ETT 7.5, grade view I. S/P carotid endarterectomy 07/31/20 Dr. Chris Mancia at [facility]- Right Social History Smoking Status: Former smoker tobacco type: smokeless tobacco Do You Dip or Chew Tobacco: Yes (1 can/2 days (advised)) Hx Alcohol Use: No Alcohol type: beer alcohol intake frequency: a few times a week Hx Substance Use: No substance use type: does not use Lab Results Anesthesia Preop Results Results Anesthesia Widget: 2 WBC 4.92 K/uL (4.8-10.8) 10/15/20 Hgb 14.1 g/dL (14.0-18.0) 10/15/20 Hct 41.7 % (42-52) L 10/15/20 Plt 245 K/uL (130-400) 10/15/20 Na 142 mmol/L (136-145) 10/15/20 K 4.0 mmol/L (3.5-5.1) 10/15/20 Cl 107 mmol/L (98-107) 10/15/20 CO2 31 mmol/L (21-32) 10/15/20 BUN 13 mg/dl (7-18) 10/15/20 Creat 0.82 mg/dl (0.6-1.4) 10/15/20 Glucose Level 119 mg/dl (70-99) H 10/15/20 PT 10.4 Seconds (9.0-12.0) 10/15/20 PTT 24.9 Seconds (21.0-31.0) 10/15/20 INR 1.0 (0.9-1.1) 10/15/20 Testing Laboratory Results Blood Type A Negative 10/15/20 09:30 Antibody Screen NEGATIVE 10/15/20 09:30 Electrocardiogram Date: 06/18/20 Findings: + NSR @ (91bpm) Possible LAE. Chest X-Ray Date: 06/18/20 Findings: + NAD Echocardiogram Date: 06/19/20 LV Function: normal Other Findings: + LVH (mild asymmetric) and + diastolic dysfunction (Grade 1) Valvular Disease: + no significant valvular disease Other Testing Neck CTA 06/20/20= Bilateral critical stenoses (greater than 90%) of the proximal internal carotid arteries. (There is a critical greater than 90% stenosis of the right internal carotid artery origin. Atheromatous changes are also present within the carotid siphon and cavernous carotid with mild to moderate luminal narrowing. There is a critical greater than 90% stenosis of the left internal carotid artery origin. Atheromatous changes are also present within the carotid siphon and cavernous carotid with mild to moderate luminal narrowing) Chest CT 06/18/2020 = distended gallbladder with pericholecystic infiltration. Findings are suspicious for acute cholecystitis (patient had subsequent cholecystectomy 06/19/20). Subcentimeter left lung pulmonary nodules. In a low risk patient, no further follow-up indicated. No evidence of acute parenchymal consolidation. No evidence of pathologic adenopathy.
--- NOTE | 2020-10-16 16:01 | History & Physical Report ---
Date of Service October 16, 2020 Assessment & Plan (1) Left carotid stenosis: Patient admitted for a left carotid endarterectomy. I have discussed the risks options and benefits of the procedure with the patient. The patient understands the risks options and benefits and agrees to the procedure. History of Present Illness Chief Complaint: Left cartoid stenosis Primary Care Provider: QIAN Olivo Errol Bautista was seen for followup of his right carotid endarterectomy as well as to discuss performing a left carotid endarterectomy. He presents with his brother. He is doing well after his right carotid, which was done earlier in July of this year. He had no complications postoperatively and states that he has been feeling well and walking now that the weather is better. They did have a question about diabetes medications and whether we had asked them to refrain from using it, however, that was not something stopped by us and so we asked him to continue to follow up with you for any needs regarding his diabetes medications. Otherwise, he feels like he is ready to go ahead and have his contralateral, left carotid endarterectomy performed. Allergies Allergy/AdvReac Type Severity Reaction Status Date / Time No Known Allergies Allergy Verified 10/10/20 10:57 Home Medications Medication Instructions Recorded Confirmed Type betamethasone dipropionate 1 applic TOPICAL BID PRN 06/18/20 10/10/20 History acetaminophen [Tylenol] 650 mg PO QID PRN 07/12/20 10/10/20 History amlodipine 5 mg tablet 5 mg PO HS #30 tab 07/20/20 10/10/20 Rx diabetic supplies, miscellan. #1 ea 07/30/20 09/06/20 Rx diabetic supplies, miscellan. #1 ea 07/30/20 09/06/20 Rx lisinopril 20 mg PO QAM 07/31/20 10/10/20 History multivitamin with minerals 1 tab PO DAILY 07/31/20 10/10/20 History aspirin 81 mg tablet,delayed 81 mg PO QAM 08/06/20 10/10/20 History release blood sugar diagnostic #100 ea 08/15/20 09/06/20 Rx blood-glucose meter #1 ea 08/15/20 09/06/20 Rx metformin 1,000 mg tablet 1,000 mg PO BIDM #180 tab 08/28/20 10/10/20 Rx atorvastatin 40 mg PO QAM 10/10/20 10/10/20 History Past Med/Surg History Medical History Carotid stenosis, bilateral S/p right CEA July 2020 Chronic arterial ischemic stroke Pt admitted 06/18/20= CT scan of head showed- "multifocal chronic cerebral infarcts involving the right parietal and bilateral frontal lobes as well as both caudate heads and thalami." Neuro consultation 06/20/20= "will likely need carotid endarterectomy" Cognitive changes Depression Diabetes type 2, uncontrolled (05/08/20) Hgb A1C noted at 9%-04/2020 Random glucose in July and September 2020 in 110s Frozen shoulder syndrome LEFT Hyperlipidemia Hypertension Memory deficit PER BROTHER ROBINA Psoriasis Surgical History History of cholecystectomy 06/19/2020 [facility] for acute cholecystitis. MAC #3, ETT 7.5, grade view I. S/P carotid endarterectomy 07/31/20 Dr. Chris Mancia at [facility]- Right Family History Mother Myocardial infarction Family history of diabetes mellitus Denies family history of Ovarian cancer Prostate cancer Breast cancer Colorectal cancer Social History Smoking Status: Former smoker Tobacco Type: Smokeless Tobacco (Dip or Chew) Second Hand Exposure: Yes; Hx Alcohol Use: No Hx Substance Use: No Preferred Language: Swedish Communication Ability: Effective Visual Impairment: No Limitations Hearing Ability: Hard of Hearing Elephant Tamer Required: No Beliefs That Will Affect Care: None marital status: Current Living Situation: Alone current occupational status: retired How many Children do You have: 0 Feels Safe at Home: Yes Childhood Exposure to Second-Hand Smoke: No caffeine: Yes during the past year weight has: remained stable Dental Care, Regularly: No Physical Activity Frequency: Daily Seatbelt Use: always Sunscreen Use: No Assistive Devices: None Review of Systems All systems reviewed & are unremarkable except as noted in HPI & below Physical Exam Constitutional: well developed and well nourished; no acute distress Neck: trachea midline right neck incision healed well Respiratory: normal respiratory effort, lungs clear to auscultation Cardiovascular: RRR, no murmur, no edema Gastrointestinal (Abdomen): Inspection/Auscultation: abdomen normal to inspection; abdomen not distended Percussion/Palpation: abdomen soft; abdomen nontender Musculoskeletal: no cyanosis or clubbing, extremities motor strength 5/5 Skin: no rashes, warm and dry Neurologic: CN's II-XI intact bilaterally and moves all extremities Psychiatric: Orientation: alert and oriented x 3
[~2020-10-17 08:08] MED LIST: CEFAZOLIN 1,000 MG/7.5 ML SYR IV SCH; LR 15ML/HR IV SCH
[2020-10-17] MEDS: LACTATED RINGER'S 1,000 ML IV SCH ×4 (08:35→19:17)
[2020-10-17] MEDS ORDERED: ePHEDrine sulfate 50 MG/ML AMP IV PRN (09:49)
[2020-10-17] MEDS ORDERED: fentaNYL citrate 100 MCG/2 ML VIAL IV PRN (09:49)
[2020-10-17] MEDS ORDERED: HYDROmorphone INJ 2 MG/ML SYR/VIAL IV PRN (09:49)
[2020-10-17] MEDS ORDERED: ONDANSETRON INJ 2 MG/ML 2 ML VIAL IV PRN (09:49)
[2020-10-17] MEDS ORDERED: ATROPINE SULFATE 0.1 MG/ML 10ML SYR IV PRN (09:49)
[2020-10-17] MEDS ORDERED: LIDOCAINE 2% 2 ML VIAL/AMP(20MG/ML) INFIL ONE ×2 (11:10→14:36)
[2020-10-17] MEDS ORDERED: fentaNYL citrate 100 MCG/2 ML VIAL ONE ×2 (11:10→12:55)
[2020-10-17] MEDS ORDERED: ROCURONIUM BROMIDE 10 MG/ML 5 ML VIAL IV ONE ×2 (11:10→14:36)
[2020-10-17] MEDS ORDERED: PROPOFOL IV EMULSION 10 MG/ML 20 ML VIAL IV ONE ×2 (11:10→14:36)
[2020-10-17] MEDS ORDERED: HEPARIN (PORCINE) 1000 UNIT/ML 10 ML (CATH LAB USE ONLY) ONE (12:53)
[2020-10-17] MEDS ORDERED: BUPIVACAINE/EPINEPHRINE 0.5% MPF 1:200,000 30 ML VIAL ONE (12:53)
[2020-10-17] MEDS ORDERED: LIDOCAINE 1% LOCAL 20 ML VIAL ONE (12:54)
[2020-10-17] MEDS ORDERED: GELATIN SPONGE SZ 100 ONE (12:54)
[2020-10-17] MEDS ORDERED: THROMBIN FOR SOLN 20000 UNIT KIT ONE (12:54)
[2020-10-17] MEDS ORDERED: MIDAZOLAM HCL 1 MG/ML 2ML VIAL ONE (12:55)
--- NOTE | 2020-10-17 13:29 | History & Physical Bridge Note ---
Date of Service October 17, 2020 History & Physical Bridge Note I have examined the patient, reviewed the History & Physical and in the interval since the performance of the History & Physical I have noted the following changes of clinical significance: no changes noted
[2020-10-17] MEDS ORDERED: ceFAZolin 1000MG 1,000 MG/7.5 ML SYR IV ONE (14:08)
[2020-10-17] MEDS ORDERED: DEXAMETHASONE SOD INJ 4 MG/ML VIAL ONE (14:36)
[2020-10-17] MEDS ORDERED: ePHEDrine sulfate 50 MG/ML AMP ONE ×2 (14:36→15:20)
[2020-10-17] MEDS ORDERED: NEOSTIGMINE METHYLSULFATE 1 MG/ML 10ML VIAL ONE (14:36)
[2020-10-17] MEDS ORDERED: GLYCOPYRROLATE 0.2 MG/ML VIAL ONE (14:36)
[2020-10-17] MEDS ORDERED: ONDANSETRON INJ 2 MG/ML 2 ML VIAL ONE (14:36)
[2020-10-17] MEDS ORDERED: PHENYLEPHRINE HCL 10 MG/ML VIAL ONE (14:36)
[2020-10-17] MEDS ORDERED: LARYING-O-JET KIT (LTA) ONE (14:36)
[2020-10-17] MEDS ORDERED: HEPARIN SOD (PORCINE) 1000 UNIT/ML ONE (14:36)
[2020-10-17] MEDS ORDERED: LABETALOL HCL IV 5 MG/ML 20ML IV ONE (14:37)
[2020-10-17] MEDS ORDERED: SUGAMMADEX SODIUM 200 MG/2 ML VIAL IV ONE (15:39)
--- NOTE | 2020-10-17 15:49 | Post Operative Brief Note ---
Immediate Post Op Note v1 Date of Surgery October 17, 2020 Pre & Post Diagnosis Operation Date: 10/17/20 10:20 Pre-Op Diagnosis: Severe Left Internal Carotid Artery Stenosis Post-Op Diagnosis: Severe Left Internal Carotid Artery Stenosis I identified the patient and participated in the time-out.: Yes Procedure Operation Date: 10/17/20 10:20 Actual Procedures p Left Carotid Endarterectomy(Left) - Chris Mancia MD Surgeon Chris Mancia MD Chimney Builder Helper MD Huy L.Minarchick,PAC Estimated Blood Loss 50 Findings Consistent with Post-Op Diagnosis Anesthesia Type General Complications none Disposition Accompanied Patient To Recovery: No Disposition: Recovery Room
--- NOTE | 2020-10-17 16:47 | Anesthesiology Progress Note ---
Date of Service October 17, 2020 Anesthesia Post Procedure Vital Signs Vital Signs: Temp Pulse Pulse Resp BP BP BP 10/17/20 16:35 63 17 126/58 L 133/71 10/17/20 16:25 64 12 111/63 144/75 H 10/17/20 16:13 36.1 C L 61 13 139/76 120/53 L 10/17/20 09:44 65 20 190/95 H 10/17/20 08:39 36.7 C 62 22 166/81 H 159/81 H Pulse Ox 10/17/20 16:35 100 10/17/20 16:25 100 10/17/20 16:13 100 10/17/20 09:44 98 10/17/20 08:39 99 Transfer of Care Handoff Completed per policy Notes Mental Status: alert / awake / arousable and participated in evaluation Patient Amnestic to Procedure: Yes Nausea / Vomiting: adequately controlled Pain: adequately controlled Airway Patency, RR, SpO2: stable & adequate BP & HR: stable & adequate Hydration State: stable & adequate Anesthetic Complications: no major complications apparent and Pt Satisfied with anesthetic care
--- NOTE | 2020-10-17 17:19 | Operative Report ---
Post Operative Report Pre & Post Diagnosis Operation Date: 10/17/20 10:20 Pre-Op Diagnosis: Severe Left Internal Carotid Artery Stenosis Post-Op Diagnosis: Severe Left Internal Carotid Artery Stenosis I identified the patient and participated in the time-out.: Yes Procedure Operation Date: 10/17/20 10:20 Actual Procedures p Left Carotid Endarterectomy(Left) - Chris Mancia MD Surgeon Chris Mancia MD Costumed Character Entertainer MD Huy L.Minarchick,PAC Estimated Blood Loss 50 Findings Consistent with Post-Op Diagnosis Specimens Carotid plaque Anesthesia Type General Complications none Disposition Disposition: Recovery Room Description of Procedure The patient was taken to the operating room and placed in supine position. After general anesthesia was accomplished the left-side of the neck was prepped and draped in a sterile manner. A safety timeout was performed to identify patient name, date of and side of the procedure. A longitudinal neck incision was then made coursing along the medial border of the sternocleidom astoid muscle. The incision was taken down through the platysmal layer. The facial vein was identified, ligated, and divided. The common carotid artery was then seen. It was dissected free down to the omohyoid muscle. The dissection was carried upward until the external carotid artery and superior thyroid artery was seen. The superior thyroid artery was slung with a 2-0 silk suture. The external carotid was slung with a red rubber vessel loop. Next the dissection was carried up along the internal carotid artery. This was carried upward to beyond the area of narrowing. The hypoglossal nerve was seen and preserved. The patient was heparinized. After adequate heparinization was accomplished, the internal, external, and common carotid arteries were clamped. A longitudinal arteriotomy was started on the common carotid artery and extended upward along the internal carotid artery to a point beyond the area of narrowing. There was calcified plaque of the internal carotid artery origin causing approximately 85-90% narrowing. A Doppler shunt was then placed in the internal, followed by the common carotid artery and held in place with Junior clamps. There was good back bleeding seen from the internal carotid artery. The endarterectomy was then started in the appropriate plane on the common carotid artery. This was carried upward and the external carotid was everted and endarterectomized. The endarterectomy was then carried up along the internal carotid artery till a nice feathering breakoff point was accomplished beyond the end of the plaque. The endarterectomy was then carried down further on the common carotid artery. At end of the arteriotomy, the plaque was then transected. Under loop magnification, all loose debris and flaps were removed. The proximal flap was tacked down using single 7-0 Prolene stitch. There is no distal flap seen at the end of the endarterectomy site. The arteriotomy then closed using a bovine pericardial patch and a running CV 6 [place]-Fran suture. This was done in the usual vascular fashion. Prior to completing the closure, the doppler shunt was removed and the internal and common carotid arteries were reclamped. Backbleeding and forward bleeding was allowed to occur. The flow surface was irrigated with heparinized saline. The final few sutures were then placed and securely tied. Clamps were then removed off the external and common carotid arteries. The clamp was then removed the internal carotid artery. Good distal flow was seen. Adequate hemostasis was seen of the patch. The wound was inspected and adequate hemostasis was obtained. The wound was irrigated with antibiotic solution. It was then closed with a running 3-0 Vicryl suture for the platysmal layer and a 4-0 subcuticular Vicryl suture for the skin edges. Dermabond was used for dressing. The patient left the operating room in satisfactory condition and tolerated the procedure well. All needles and sponge counts were correct at the end of the case. Mariela Funk Pac assisted in this case. Dr. Mancia was present for the entirety of the case. I attest to the content of the Intraoperative Record and any orders documented therein. Any exceptions are noted below.
--- NOTE | 2020-10-17 17:32 | Critical Care Consultation ---
Date of Consultation October 17, 2020 Assessment & Plan (1) Left carotid stenosis: Reason Critically Ill: Postop day 0 from left carotid endarterectomy PLAN: Neuro: Nonfocal neuro exam Resp: Tolerating room air CV: Blood pressure control -Arterial line in place Fluids/Renal: Fluids per vascular surgery ID: IV antibiotics per vascular surgery GI/Nutrition: Regular diet Heme: DVT prophylaxis: Anticipate ambulation tomorrow Endocrine: ICU hyperglycemia protocol Vascular access: Peripheral IVs Code Status: Full code Disposition: ICU (2) Post-operative state: History of Present Illness Attending Physician: Chris Mancia MD Postop day 0 from left carotid endarterectomy. Patient denies chest pain shortness of breath feels that his speech is normal no complaints at this time. Allergies Allergy/AdvReac Type Severity Reaction Status Date / Time No Known Allergies Allergy Verified 10/17/20 08:32 Home Medications Medication Instructions Recorded Confirmed Type betamethasone dipropionate 1 applic TOPICAL BID PRN 06/18/20 10/17/20 History acetaminophen [Tylenol] 650 mg PO QID PRN 07/12/20 10/17/20 History amlodipine 5 mg tablet 5 mg PO HS #30 tab 07/20/20 10/17/20 Rx diabetic supplies, miscellan. #1 ea 07/30/20 09/06/20 Rx diabetic supplies, miscellan. #1 ea 07/30/20 09/06/20 Rx lisinopril 20 mg PO QAM 07/31/20 10/17/20 History multivitamin with minerals 1 tab PO DAILY 07/31/20 10/17/20 History aspirin 81 mg tablet,delayed 81 mg PO QAM 08/06/20 10/17/20 History release blood sugar diagnostic #100 ea 08/15/20 09/06/20 Rx blood-glucose meter #1 ea 08/15/20 09/06/20 Rx metformin 1,000 mg tablet 1,000 mg PO BIDM #180 tab 08/28/20 10/17/20 Rx atorvastatin 40 mg PO QAM 10/10/20 10/17/20 History Patient History Medical History Carotid stenosis, bilateral S/p right CEA July 2020 Chronic arterial ischemic stroke Pt admitted 06/18/20= CT scan of head showed- "multifocal chronic cerebral infarcts involving the right parietal and bilateral frontal lobes as well as both caudate heads and thalami." Neuro consultation 06/20/20= "will likely need carotid endarterectomy" Cognitive changes Depression Diabetes type 2, uncontrolled (05/08/20) Hgb A1C noted at 9%-04/2020 Random glucose in July and September 2020 in 110s Frozen shoulder syndrome LEFT Hyperlipidemia Hypertension Memory deficit PER BROTHER ROBINA Psoriasis Surgical History History of cholecystectomy 06/19/2020 [facility] for acute cholecystitis. MAC #3, ETT 7.5, grade view I. S/P carotid endarterectomy 07/31/20 Dr. Chris Mancia at [facility]- Right Family History Mother Myocardial infarction Family history of diabetes mellitus Denies family history of Ovarian cancer Prostate cancer Breast cancer Colorectal cancer Social History Smoking Status: Former smoker Tobacco Type: Smokeless Tobacco (Dip or Chew) Second Hand Exposure: No; Do You Dip or Chew Tobacco: Yes (1 can/2 days (advised)); Tobacco Cessation Education Requested by Patient: No Hx Alcohol Use: No Hx Substance Use: No Preferred Language: Romanian Communication Ability: Effective Visual Impairment: No Limitations Hearing Ability: Hard of Hearing Subgrade Tester Required: No Beliefs That Will Affect Care: None marital status: Current Living Situation: Alone current occupational status: retired How many Children do You have: 0 Other Information That Helps Us Care for You: No Feels Safe at Home: Yes Safety Concerns: Feels Safe At This Time Childhood Exposure to Second-Hand Smoke: No caffeine: Yes during the past year weight has: remained stable Dental Care, Regularly: No Physical Activity Frequency: Daily Seatbelt Use: always Sunscreen Use: No Assistive Devices: None Review of Systems Review of Systems: As per the [facility] Physical Exam Physical Exam: General: Alert. nontoxic. Skin: Warm, dry, Head: Atraumatic, Ears, nose, mouth and throat: airway patent, incision clean dry and intact, soft Cardiovascular: Normal peripheral perfusion Respiratory: no respiratory distress Gastrointestinal: Non distended Musculoskeletal: No deformity, 5 out of 5 strength in 4 extremities Results & Data Results & Data ([facility]) Vital Signs (Past 12 Hours) Vital Signs Temp Pulse Pulse Resp BP BP BP 10/17/20 16:55 36.6 C 64 16 129/65 135/64 10/17/20 16:45 64 13 116/67 128/68 10/17/20 16:35 63 17 126/58 L 133/71 10/17/20 16:25 64 12 111/63 144/75 H 10/17/20 16:13 36.1 C L 61 13 139/76 120/53 L 10/17/20 09:44 65 20 190/95 H 10/17/20 08:39 36.7 C 62 22 166/81 H 159/81 H Pulse Ox 10/17/20 16:55 99 10/17/20 16:45 100 10/17/20 16:35 100 10/17/20 16:25 100 10/17/20 16:13 100 10/17/20 09:44 98 10/17/20 08:39 99 Coding Level of Care Code 42211 Inpt Consult Level 4 Diagnoses Left carotid stenosis I65.22 Post-operative state Z98.890
[2020-10-17] MEDS ORDERED: oxyCODONE/ACETAMINOPHEN 5mg/325mg TAB PO PRN (18:01)
[2020-10-17] MEDS ORDERED: BETAMETHASONE DIP AUG (DIPROLENE) 0.05% CR 15 GM TUBE EXT PRN (18:01)
[2020-10-17] MEDS ORDERED: MoRPHine SULFATE 4 MG/ML 1 ML CARP\\VIAL IV PRN (18:01)
[2020-10-17] MEDS ORDERED: ACETAMINOPHEN 325 MG TAB PO PRN (18:08)
[2020-10-17] MEDS ORDERED: COUGH DROP (SUGAR FREE) LOZ 24 LOZ/1 BOX BUCCAL ONE (18:37)
[2020-10-17] MEDS: metFORMIN HCL 500 MG TAB PO SCH (18:39)
[2020-10-17] MEDS: ICU PROTOCOL FOR HYPERGLYCEMIA SCH (18:40)
[2020-10-17] MEDS ORDERED: COUGH DROP (SUGAR FREE) LOZ 24 LOZ/1 BOX BUCCAL PRN (19:08)
[2020-10-17] MEDS ORDERED: amLODIPine BESYLATE 5 MG TAB PO SCH (21:00)
[2020-10-17] MEDS: ceFAZolin 2000MG 2,000 MG/15 ML SYR IV SCH (21:39)
[2020-10-18] MEDS: LACTATED RINGER'S 1,000 ML IV SCH (03:06)
[2020-10-18 04:47] LABS: Basophils # (auto) 0.01 K/uL (0-0.2); Basophils % (auto) 0.1 %; Hemoglobin 11.7 g/dL (14.0-18.0); Immature Granulocytes # (auto) 0.02 K/uL (0.00-0.02); Immature Granulocytes % (auto) 0.2 %; Lymphocytes # (auto) 0.92 K/uL (1.2-3.4); Lymphocytes % (auto) 8.2 %; Mean Corpuscular Hemoglobin 29.8 pg (25-34); Mean Corpuscular Hgb Conc 33.4 g/dL (32-36); Mean Corpuscular Volume 89.3 fL (80-100); Mean Platelet Volume 10.4 fL (7.4-10.4); Monocytes # (auto) 0.58 K/uL (0.11-0.59); Monocytes % (auto) 5.2 %; Neutrophils % (auto) 86.3 %; Platelet Count 238 K/uL (130-400); RDW Coefficient of Variation 14.4 % (11.5-14.5); RDW Standard Deviation 47.1 fL (36.4-46.3); Red Blood Count 3.92 M/uL (4.7-6.1); White Blood Count 11.23 K/uL (4.8-10.8)
[2020-10-18] MEDS: ceFAZolin 2000MG 2,000 MG/15 ML SYR IV SCH (05:47)
--- NOTE | 2020-10-18 07:41 | Surgery Progress Note ---
Date of Service October 18, 2020 Assessment & Plan (1) S/P carotid endarterectomy: Patient is doing well after endart. Can d/c today. Admission and Anticipated Discharge Date Admission Date: October 17, 2020 Subjective Patient has no complaints. No problems with swallowing. Denies any focal deficits. Physical Exam Constitutional: well developed and well nourished Neck: trachea midline Respiratory: no respiratory distress Cardiovascular: Rate/Rhythm: regular rate and regular rhythm Skin: + incision (minimal incisonal swelling, dry and clean) Neurologic: CN's II-XI intact bilaterally and moves all extremities Psychiatric: Orientation: alert and oriented x 3 Results & Data ([facility]) Vital Signs (Past 12 Hours) Vital Signs Temp Pulse Resp BP Pulse Ox 10/18/20 07:01 67 16 95 10/18/20 06:59 67 17 117/56 L 94 10/18/20 06:30 69 22 96 10/18/20 06:00 67 14 108/56 L 95 10/18/20 05:30 66 16 95 10/18/20 05:00 68 13 107/51 L 94 10/18/20 04:30 70 14 94 10/18/20 04:00 37.1 C 68 17 104/50 L 95 10/18/20 03:30 69 20 92 10/18/20 03:00 69 16 113/53 L 95 10/18/20 02:30 68 15 95 10/18/20 02:00 68 16 113/54 L 94 10/18/20 01:30 70 22 94 10/18/20 01:00 68 17 104/52 L 94 10/18/20 00:30 68 17 97 10/18/20 00:00 36.8 C 69 15 125/63 96 10/17/20 23:30 71 19 96 10/17/20 23:00 71 17 134/60 95 10/17/20 22:30 68 15 96 10/17/20 22:00 70 15 138/58 L 93 10/17/20 21:30 69 18 95 10/17/20 21:00 62 18 114/86 96 10/17/20 20:30 64 22 96 10/17/20 20:00 36.6 C 63 22 122/66 96
[2020-10-18] MEDS: metFORMIN HCL 500 MG TAB PO SCH (07:48)
[2020-10-18] MEDS: ICU PROTOCOL FOR HYPERGLYCEMIA SCH (07:49)
[2020-10-18] MEDS ORDERED: ATORVASTATIN 40 MG TAB PO SCH (09:00)
[2020-10-18] MEDS ORDERED: ASPIRIN 81 MG ECTAB PO SCH (09:00)
[2020-10-18] MEDS ORDERED: lisinopril 20 MG TAB PO SCH (09:00)
[2020-10-18] MEDS ORDERED: CEROVITE ADV FORMULA TAB PO SCH (09:00)
--- NOTE | 2020-10-23 08:45 | Discharge Summary ---
Date of Service October 23, 2020 Admission HPI Per Admitting Provider Errol Bautista was seen for followup of his right carotid endarterectomy as well as to discuss performing a left carotid endarterectomy. He presents with his brother. He is doing well after his right carotid, which was done earlier in July of this year. He had no complications postoperatively and states that he has been feeling well and walking now that the weather is better. They did have a question about diabetes medications and whether we had asked them to refrain from using it, however, that was not something stopped by us and so we asked him to continue to follow up with you for any needs regarding his diabetes medications. Otherwise, he feels like he is ready to go ahead and have his contralateral, left carotid endarterectomy performed. Admission Exam Per Admitting Provider Constitutional: well developed and well nourished; no acute distress Neck: trachea midline right neck incision healed well Respiratory: normal respiratory effort, lungs clear to auscultation Cardiovascular: RRR, no murmur, no edema Gastrointestinal (Abdomen): Inspection/Auscultation: abdomen normal to inspection; abdomen not distended Percussion/Palpation: abdomen soft; abdomen nontender Musculoskeletal: no cyanosis or clubbing, extremities motor strength 5/5 Skin: no rashes, warm and dry Neurologic: CN's II-XI intact bilaterally and moves all extremities Psychiatric: Orientation: alert and oriented x 3 Principal Diagnosis 1. s/p L CEA 2. LICAS Discharge Exam Constitutional well developed and well nourished; no acute distress Neck trachea midline Respiratory normal respiratory effort, lungs clear to auscultation no respiratory distress Cardiovascular RRR, no murmur, no edema Rate/Rhythm: regular rate and regular rhythm Gastrointestinal (Abdomen) Inspection/Auscultation: abdomen normal to inspection; abdomen not distended Percussion/Palpation: abdomen soft; abdomen nontender Musculoskeletal no cyanosis or clubbing, extremities motor strength 5/5 Skin no rashes, warm and dry + incision (minimal incisonal swelling, dry and clean) Neurologic CN's II-XI intact bilaterally and moves all extremities Psychiatric Orientation: alert and oriented x 3 Discharge Data Allergies Allergy/AdvReac Type Severity Reaction Status Date / Time No Known Allergies Allergy Verified 10/17/20 08:32 Consultations 10/17/20 13:29 Consult Cash Register Operator Routine Procedures Performed Operation Date: 10/17/20 10:20 Actual Procedures p Left Carotid Endarterectomy(Left) - Chris Mancia MD Hospital Course (1) S/P carotid endarterectomy: Patient is doing well after endart, POD #1. Can d/c home today. Total Time Total Time Spent Total Time Spent (In Minutes): 0 Discharge Plan Discharge Items Patient Disposition: Home - Self-Care Reason For Visit: Severe Left Internal Carotid Artery Stenosis Discharge Diagnosis: left carotid stenosis, left carotid endarterectomy Activity: Per Instructions section Bathing Comment: may shower Non-emergency contact: Surgeon Call non-emergency contact if: your temperature is above 101.5, your wound has increased redness, your wound has increased drainage and your wound pain has increased Follow-up/Referrals: Mathew Gonzalez CRNP [Primary Care Provider] - Diet: Carb Consistent or DM2 and Heart Healthy Addtl Attending Provider Instructions: SPECIAL CARE INSTRUCTIONS: Medications: * Continue to take Aspirin as directed. Incision Care: * You may shower, but do not rub incision. You may let the warm soapy water run over it. Be sure to dry the incision well after bathing. * Do not shave directly over the incision until it is healed. * DO NOT IMMERSE THE INCISION IN A TUB/POOL/etc. UNTIL HEALED. Restrictions: * Do not drive for at least one week or if you are still taking any narcotic pain medication. * Do not lift anything heavier than a gallon of milk for one week after going home. Possible Complications: * Numbness - It is normal to have some numbness around the incision. Numbness can extend beyond the incision to areas of the neck, ear and face. The numbness is due to bruising of nerves during the surgery and will gradually improve over a period of months. * Hoarseness/Difficulty Speaking and Swallowing - The bruising of nerves in the neck can also cause a hoarse voice, difficulty speaking or swallowing. This may improve over time, HOWEVER, if it continues for more than a few days please contact our office ([phone]). * Excessive Swelling - There will be some swelling immediately after surgery which usually resolves within one week. If you notice that the swelling is getting worse, notify your surgeon ([phone]). * Drainage/Bleeding - If there is any drainage or bleeding, it should be a very small amount (less than a teaspoon per day). If you have excessive bleeding or drainage from the incision, call your surgeon ([phone]) right away. ACTIVATION OF EMERGENCY MEDICAL SYSTEM: Call 911, immediately, if you experience any of the following: Warning Signs and Symptoms of Stroke: * Sudden numbness or weakness of the face, arm or leg, especially on one side of the body * Sudden confusion, trouble speaking or understanding * Sudden trouble seeing in one or both eyes * Sudden trouble walking, dizziness, loss of balance or coordination * Sudden severe headache with no cause Do not delay calling 911 if you experience any warning signs or symptoms of a stroke. Delay in seeking medical attention may affect what treatments can be given to you. Risk Factors for Stroke: You can reduce your chances of stroke by working with your medical provider to adopt a healthy lifestyle. Some specific ways to lower your chance of stroke are: * If you are a smoker, now is the time to stop smoking cigarettes * If you are diabetic, improve the control of your blood sugars * Avoid excessive amounts of alcohol * Control high blood pressure * Lose weight if you are overweight * Be sure to lead an active lifestyle * Eat a healthy diet low in salt, cholesterol and fat You should know about other risk factors for stroke that you are unable to c ontrol. These include: * Age 55 years or older * Male gender * Certain racial groups: , or / * Family History of Stroke, Mini stroke or Heart Attack * Sickle Cell Disease You will be receiving a call from the Vascular Surgery Nurse after you are discharged. FOLLOW UP VISIT: It is important for you to keep your follow up appointments with your medical provider. Keep any scheduled doctor appointments. Call [phone] to schedule a follow up appointment if one not already scheduled. Pending Studies at Discharge: No Stand-Alone Forms: [employer], Smoking Cessation Medications and DC Order Prescriptions: New oxycodone-acetaminophen [Percocet] 5-325 mg tablet 1 tab PO Q6H PRN (Reason: pain) Qty: 10 RF: 0 Continued amlodipine 5 mg tablet 5 mg PO HS Qty: 30 RF: 3 (DME) diabetic supplies, [employer]. Misc See Rx Instructions .ROUTE .MEDSUPPLY Qty: 1 RF: 3 (DME) diabetic supplies, miscellan. Misc See Rx Instructions .ROUTE .MEDSUPPLY Qty: 1 RF: 0 (DME) blood-glucose meter [OneTouch Verio Meter] Misc See Rx Instructions .ROUTE .MEDSUPPLY Qty: 1 RF: 0 (DME) OneTouch Verio test strips Strip See Rx Instructions .ROUTE .MEDSUPPLY Qty: 100 RF: 2 metformin 1,000 mg tablet 1,000 mg PO BIDM Qty: 180 RF: 1 aspirin 81 mg tablet,delayed release (DR/EC) 81 mg PO QAM RF: 0 betamethasone dipropionate 0.05 % cream 1 applic topical BID PRN (Reason: Psoriasis) RF: 0 acetaminophen [Tylenol] 325 mg Capsule 650 mg PO QID PRN (Reason: Pain) RF: 0 multivitamin with minerals Tablet,Chewable 1 tab PO DAILY RF: 0 lisinopril 20 mg tablet 20 mg PO QAM RF: 0 atorvastatin 40 mg tablet 40 mg PO QAM RF: 0 Discharge Orders: Discharge Order (Routine); Ordered 10/18/20 Ordered By: Chris Marquez/Other Patient Handouts: Managing Post-Op Pain at Home ... Admission Data Admit Date/Time: 10/17/20 13:29 Attending Provider: Chris Mancia Admit Provider: Chris Mancia Primary Care Provider: Mathew Gonzalez Other Providers: Dean Hilton ; Kenn Gross ; Luis Corral ; Nicolas Parr ; Codey Kenyon ; Luís Ortiz ; Dillon Mcdonough Other Interventions: Discharge Summary Assessment (RN) Last Done: 10/18/20 08:26
== END 2020-10-18 09:39 | disposition home or self-care (01) | DRG 39 ==
LOC: ASU 08:08 → 1E 13:29